=== PATIENT | male | born 1955 ===

== ENCOUNTER 2018-04-02 16:30 | Outpatient (REF) | payer MEDICARE, SELFPAY ==
[2018-04-02 22:09] LABS: Anion Gap 6.2 mmol/L (3-11); BUN 10 mg/dL (7-18); CO2 29.8 mmol/L (21.0-32.0); Calcium 8.8 mg/dL (8.5-10.1); Chloride 100 mmol/L (98-107); Glucose 98 mg/dL (70-100); Potassium 4.3 mmol/L (3.5-5.1); Sodium 136 mmol/L (136-145)
[2018-04-02 23:28] LABS: Cholesterol 166 mg/dL (50-200); HDL Cholesterol 84 mg/dL (40-60); LDL CHOLESTEROL 65 mg/dL (<100); Triglyceride 80 mg/dL (30-150)
== END 2018-04-02 16:50 ==
LOC: NCHCN 16:30
PROVIDERS: PCP Internal Medicine; Visit Provider Internal Medicine
DX: E78.5 Hyperlipidemia, unspecified (principal); Z79.899 Other long term (current) drug therapy
CPT/HCPCS: 80048; 80061; 83721

== ENCOUNTER 2019-11-12 15:03 | Outpatient (REF) | payer MEDICARE, SELFPAY ==
[2019-11-12 21:58] LABS: HCT 41.3 % (40.0-50.0); HGB 14.2 g/dL (13.5-17.5); Mean Corp. HGB Concentration 34.4 g/dL (32.0-36.0); Mean Corpuscular Hemoglobin 33.3 pg (27.0-33.0); Mean Corpuscular Volume 96.9 fL (80-95); Mean Platelet Volume 9.9 fL (8.0-11.0); Platelet Count 278 x1000/uL (130-400); RBC 4.26 m/cumm (4.50-6.00); RBC Distribution Width 12.4 % (11.8-14.1); White Blood Cell Count 5.44 k/cumm (4.4-10.8)
[2019-11-12 22:13] LABS: Anion Gap 7.8 mmol/L (3-11); BUN 10 mg/dL (7-18); CO2 27.2 mmol/L (21.0-32.0); CREATININE 0.68 mg/dL (0.70-1.30); Calcium 9.1 mg/dL (8.5-10.1); Chloride 98 mmol/L (98-107); Glucose 101 mg/dL (74-106); Potassium 4.1 mmol/L (3.5-5.1); Sodium 133 mmol/L (136-145)
== END 2019-11-12 15:23 ==
LOC: NCHCN 15:03
PROVIDERS: PCP Internal Medicine; Visit Provider Internal Medicine
DX: Z79.899 Other long term (current) drug therapy (principal); Z51.81 Encounter for therapeutic drug level monitoring
CPT/HCPCS: 80048; 85027

== ENCOUNTER 2020-12-18 19:32 | Outpatient (REF) | payer MEDICARE, SELFPAY ==
[2020-12-18 20:22] LABS: COMMENT (LAB VIEW ONLY) 139.18 mg/dL; Microalb ug/mg Crea 17.2 ug/mg Cr
== END 2020-12-18 19:33 | disposition home or self-care (01) ==
LOC: NCHCN 19:32
PROVIDERS: PCP Internal Medicine; Visit Provider Internal Medicine
DX: R20.0 Anesthesia of skin (principal); R60.0 Localized edema
CPT/HCPCS: 82043; 82570

== ENCOUNTER 2023-10-30 15:50 | Outpatient (REF) | payer MEDICARE, SELFPAY ==
[2023-10-30 22:03] LABS: HCT 40.4 % (40.0-50.0); HGB 14.2 g/dL (13.5-17.5); MCH 34.1 pg (27.0-33.0); MCHC 35.1 % (32.0-36.0); MCV 97 fL (80-95); MPV 10.7 fL (8.0-11.0); Platelet Count 260 10^3/uL (130-400); RBC 4.17 10^6/uL (4.36-5.78); RDW 11.8 % (11.8-14.1); RDW-SD 42.4 fL; WBC 5.16 10^3/uL (4.4-10.8)
[2023-10-30 22:21] LABS: ALT 24 U/L (16-63); AST 21 U/L (15-37); Albumin 3.9 g/dL (3.4-5.0); Alkaline Phosphatase 66 U/L (46-116); Anion Gap 4.5 mmol/L (3-11); BUN 9 mg/dL (7-18); Bilirubin, Total 0.6 mg/dL (0.2-1.0); CO2 30.5 mmol/L (21.0-32.0); CREATININE 0.7 mg/dL (0.70-1.30); Calcium 8.9 mg/dL (8.5-10.1); Chloride 99 mmol/L (98-107); Estimated GFR 101.62 (mL/min/1.73m2); Glucose 100 mg/dL (74-106); Potassium 4.3 mmol/L (3.5-5.1); Sodium 134 mmol/L (136-145); Total Protein 7.1 g/dL (6.4-8.2)
== END 2023-10-30 15:51 | disposition home or self-care (01) ==
LOC: NCHCN 15:50
PROVIDERS: PCP Internal Medicine; Visit Provider Internal Medicine
DX: Z79.899 Other long term (current) drug therapy (principal); Z51.81 Encounter for therapeutic drug level monitoring
CPT/HCPCS: 80053; 85027

== ENCOUNTER 2023-12-01 16:44 | Outpatient (REF) | payer MEDICARE, SELFPAY ==
--- OUTSIDE RECORDS SUMMARY | 2023-12-01 16:59 | XMS_ITS | Encounter Summary ---
Author Organization [facility] [place] [address] Care Team Providers Care Jig Operator Name Role Phone Shazia Philip MD Primary Care Provider [phone] Encounter Details Date Type Department Care Team (Late st Contact Info) Description 10/23/2019 2:45 PM EDT Ancillary Procedure Pain Management Counts Include [address] [facility] [id number] Don Marquez MD [facility] [place] [address] Pain Social History Tobacco Use Types Packs/Day Years Used Date Smoking Tobacco: Never Smokeless Tobacco: Never Sex and Gender Information Value Date Recorded Sex Assigned at Not on file Gender Identity Not on file Sexual Orientation Not on file documented as of this encounter Plan of Treatment Not on file documented as of this encounter Procedures Procedure Name Priority Date/Time Associated Diagnosis Comments FILM LIBRARY STORAGE ONLY PAIN CLINIC C ARM Routine 10/25/2019 4:51 PM EDT Pain documented in this encounter Results * Film Library- Storage Only pain Clinic C-Arm (10/25/2019 4:51 PM EDT) Narrative [facility] - 10/25/2019 4:51 PM EDT See PACS for result report. Don Marquez MD IMG FILM LIBRARY ORD ERABLES [place], [place] documented in this encounter Visit Diagnoses Diagnosis Pain Generalized pain documented in this encounter Care Teams Jig Operator Relationship Specialty Start Date End Date Shazia Philip MD [address] [place] [address] PCP - General General Internal Medicine 01/24/19 documented as of this encounter
--- OUTSIDE RECORDS SUMMARY | 2023-12-01 16:59 | XMS_ITS | Clinical Summary ---
Author Organization [facility]ly [facility] Address [facility] [place] [address] Care Team Providers Care Veterinary Medicine Scientist Name Role Phone Shazia Philip MD Primary Care Provider [phone] Allergies No known active allergies Medications Medication Sig Dispensed Refills Start Date End Date Status methadone (DOLOPHINE) 10 mg Tablet Take 10 mg by mouth 2 times daily. 0 12/29/2018 Active tadalafil (CIALIS) 5 mg Tablet as needed. 3 12/30/2018 Active ibuprofen (Advil;Motrin) 400 mg Tablet Take 400 mg by mouth every 8 hours as needed for Pain. Active Active Problems Problem Noted Date Diagnosed Date Chronic left shoulder pain 01/22/2020 Spondylosis without myelopat hy or radiculopathy, lumbar region 02/11/2019 Lumbar facet arthropathy 01/24/2019 Chronic bilateral low back pain without sciatica 01/24/2019 Spasticity 01/24/2019 History of spinal cord injury 01/24/2019 Social History Tobacco Use Types Packs/Day Years Used Date Smoking Tobacco: Never Smokeless Tobacco: Never Sex and Gender Information Value Date Recorded Sex Assigned at Not on file Gender Identity Not on file Sexual Orientation Not on file Last Filed Vital Signs Vital Sign Reading Time Taken Comments Blood Pressure 131/92 01/08/2020 11:06 AM EDT Pulse 62 10/23/2019 2:00 PM EDT Temperature 36.4 ??C (97.6 ??F) 10/23/2019 2:00 PM ED T Respiratory Rate 16 01/08/2020 11:20 AM EDT Oxygen Saturation 97% 01/08/2020 11:06 AM EDT Inhaled Oxygen Concentration - - Weight 72.6 kg (160 lb) 01/21/2020 3:44 PM EDT Height 170.2 cm (5' 7) 01/08/2020 10:30 AM EDT Body Mass Index 25.06 01/08/2020 10:30 AM EDT Plan of Treatment Health Maintenance Due Date Last Done Comments CT Colonography 1955 Colonoscopy 1955 Colorectal Cancer Screening 1955 FIT DNA 1955 FIT 1955 Sigmoidoscopy (10 year) with FIT yearly 1955 Sigmoidoscopy 1955 Hepatitis C Screening 10/09/1975 Lipid Screening 10/09/1975 Tdap adult 1976 Tetanus vaccine 1976 Zoster vaccine (1 of 2) 10/09/2007 Advance Directive 2012 Pneumoccocal Vaccine: 65+ (1 of 1 - PCV) 2022 Covid-19 Vaccine (1 - season) 2023 Influenza (Flu) vaccine (1 o f 1 - Influenza standard series) 01/14/2024 Care Teams Veterinary Medicine Scientist Relationship Specialty Start Date End Date Shazia Philip MD [address] [place], [place] [id number] PCP - General General Internal Medicine 01/24/19
--- OUTSIDE RECORDS SUMMARY | 2023-12-01 16:59 | XMS_ITS | Encounter Summary ---
Author Organization [facility] Address [facility] [place] [address] Care Team Providers Care Interpreter And Translator Name Role Phone Shazia Philip MD Primary Care Provider [phone] Encounter Details Date Type Department Care Team (Latest Contact Info) Description 10/23/2019 2:50 PM EDT - 10/23/2019 3:49 PM EDT Hospital Encounter [place] [phone] Don Marquez MD [facility] [place] [address] Spondylosis without myelopathy or radiculopathy, lumbar region; Lumbar facet arthropathy; Lumbar spondylosis; Chronic bilateral low back pain without sciatica Discharge Disposition: Home Social History Tobacco Use Types Packs/Day Years Used Date Smoking Tobacco: Never Smokeless Tobacco: Never Sex and Gender Information Value Date Recorded Sex Assigned at Not on file Gender Identity Not on file Sexual Orientation Not on file documented as of this encounter Last Filed Vital Signs Vital Sign Reading Time Taken Comments Blood Pressure 134/89 10/23/2019 3:10 PM EDT Pulse - - Temperature - - Respiratory Rate - - Oxygen Saturation 99% 10/23/2019 3:10 PM EDT Inhaled Oxygen Concentration - - Weight - - Height - - Body Mass Index - - documented in this encounter Discharge Instructions * Discharge Instructions* Belia Ramon RN - 10/23/2019 3:11 PM EDT Pain Management Center Discharge Instructions: You were seen today by Surgeon(s): Don Marquez MD Alexander, Christopher E, MD The following was performed: Procedure(s) (LRB): INJECTION, FACET JOINT, W\FLUORO, LUMBAR, SINGLE (WRVU 1.52) (Bilateral) INJECTION, FACET JOINT, W\FLUORO, LUMBAR, 2ND LEVEL (WRVU 1) (Bilateral) INJECTION, FACET JOINT, W\FLUORO, LUMBAR, 3RD LEVEL (WRVU 1) (Bilateral) It is normal that the injection site will be sore for up to 48 hours. [x] You may also experience mild stiffness in the joint near the injection site. You may resume your normal activities: tomorrow. You may shower today. DO NOT tub bathe, use whirlpools, hot tubs or pool therapy for 2 days. RemoveBand-Aid(s) later today/tomorrow. Do not drive until tomorrow. Use caution walking/climbing stairs as you may be unsteady on your feet. You may use your usual medications, including pain medications, as directed, unless otherwise instructed. You may use an ice pack as needed for the first 24 hours, on for 20 minutes then off for 20 minutes. Do not apply heat today. . Attempt to empty your bladder 4-6 hours after your procedure. You received the following medications: Medications Given During Procedure Date/Time Order Dose Route Action 10/23/2019 1502 BUpivacaine (PF) (MARCAINE) 0.25 % (2.5 mg/mL) injection 2 mL Subcutaneous Given 10/23/2019 1503 iohexoL (OMNIPAQUE) 240 mg/mL solution 1 mL Other Given 10/23/2019 1503 methylPREDNISolone acetate (DEPO-Medrol) injection 100 mg Given During regular business hours, please phone the Pain Management Center at with any questions or if the following or other troubling symptoms develop: 1) Prolonged dizziness or weakness (more than 1 day). 2) Localized swelling, redness or drainage at the injection site(s). 3) Temperature of 101 degrees that lasts for more than 4 hours. After 5 PM or on weekends, call and ask for Pain Clinic provider on-call. If you are unable to reach the Pain Management Center and have a complication, please call your Primary Care Provider or proceed to your local emergency department. Belia Ramon RN documented in this encounter Medications at Time of Discharge Medication Sig Dispensed Refills Start Date End Date ibuprofen (Advil;Motrin) 400 mg Tablet Take 400 mg by mouth every 8 hours as needed for Pain. methadone (DOLOPHINE) 10 mg Tablet Take 10 mg by mouth 2 times daily. 0 12/29/2018 tadalafil (CIALIS) 5 mg Tablet as needed. 3 12/30/2018 documented as of this encounter H&P Notes * Mil Bravo MD - 10/23/2019 2:55 PM EDT Patient Name: Michael Esqueda Patient Age: 64 y.o. Birthdate: 1955 Admit date: 10/23/2019 Attending Physician: Don Marquez MD PREPROCEDURE HISTORY AND PHYSICAL Date of Visit: October 23, 2019 Chief Complaint: Low back pain HPI: Subjective Michael Esqueda is a 64 y.o. male who presents today for bilateral L3-4 and L4-5 intraarticular facet injections. The history is obtained from the patient, and I have reviewed medical records provided by the referring physician and located in the electronic medical record to fill in gaps in the patient's recollection of events, treatments and outcomes. LOCATION: across the lower back. PAIN LEVEL AT REST 10 PAST MEDICAL HISTORY: No past medical history on file. PAST SURGICAL HISTORY: No past surgical history on file. ALLERGIES: Patient has no known allergies. MEDICATIONS: No current facility-administered medications on file prior to encounter. Current Outpatient Medications on File Prior to Encounter Medication Sig Dispense Refill ??? ibuprofen (Advil;Motrin) 400 mg Tablet Take 400 mg by mouth every 8 hours as needed for Pain. ??? methadone (DOLOPHINE) 10 mg Tablet Take 10 mg by mouth 2 times daily. 0 ??? tadalafil (CIALIS) 5 mg Tablet as needed. 3 FAMILY HISTORY: No family history on file. SOCIAL HISTORY: Social History Socioeconomic History ??? Marital status: Single Spouse name: Not on file ??? Number of children: Not on file ??? Years of education: Not on file ??? Highest education level: Not on file Occupational History ??? Not on file Social Needs ??? Financial resource strain: Not on file ??? Food insecurity Worry: Not on file Inability: Not on file ??? Transportation needs Medical: Not on file Non-medical: Not on file Tobacco Use ??? Smoking status: Never Smoker ??? Smokeless tobacco: Never Used Substance and Sexual Activity ??? Alcohol use: Not on file ??? Drug use: Not on file ??? Sexual activity: Not on file Lifestyle ??? Physical activity Days per week: Not on file Minutes per session: Not on file ??? Stress: Not on file Relationships ??? Social connections Talks on phone: Not on file Gets together: Not on file Attends zoroastrianism service: Not on file Active member of club or organization: Not on file Attends meetings of clubs or organizations: Not on file Relationship status: Not on file ??? Intimate partner violence Fear of current or ex partner: Not on file Emotionally abused: Not on file Physically abused: Not on file Forced sexual activity: Not on file Other Topics Concern ??? Not on file Social History Narrative ??? Not on file ROS: Constitutional: Negative for chills and fever. Musculoskeletal: Positive for back pain. All 12 systems otherwise negative. PHYSICAL EXAM: There were no vitals taken for this visit. Physical Exam Constitutional: Oriented to person, place, and time. Appears well-developed and well-nourished. No distress. HENT: Head: Normocephalic and atraumatic. Eyes: EOM are normal. Pulmonary/Chest: Effort normal. No respiratory distress. Neurological: Alert and oriented to person, place, and time. Skin: Skin is warm and dry. Psychiatric: Normal mood and affect. RADIOLOGIC DATA: X-ray reviewed LABS/DX RESULTS: Last wbc, hgb, hct plt No results for input(s): WBC, HGB, HCT in the last 72 hours. Invalid input(s): PLT ASSESSMENT: Assessment 1. Spondylosis without myelopathy or radiculopathy, lumbar region 2. Lumbar facet arthropathy 3. Lumbar spondylosis 4. Chronic bilateral low back pain without sciatica PLAN: 1. Spondylosis without myelopathy or radiculopathy, lumbar region 2. Lumbar facet arthropathy 3. Lumbar spondylosis 4. Chronic bilateral low back pain without sciatica Will proceed with bilateral L3-4 and L4-5 intraarticular facet joint injections as planned documented in this encounter Miscellaneous Notes * Op Note - iMl Bravo MD - 10/23/2019 3:36 PM EDT Pain Management Operative Note Patient Name: Michael Esqueda : [id number] MR#: [id number] Case Date: 10/23/2019 Surgeon: Surgeon(s) and Role: * Don Marquez MD - Primary * Mil Bravo MD - Fellow Present on Admission: ??? Spondylosis without myelopathy or radiculopathy, lumbar region INTRA-ARTICULAR FACET JOINT INJECTION Date of Service: 10/14/2019 Patient: Michale Esqueda Provider: Mil Bravo MD Michael Esqueda has been referred to the Pain Management Center for intra- articular lumbar facet joint injection. Mr. Esqueda was interviewed and the medical record reviewed. There were no medical, pharmacologic, radiographic or other structural contraindications to attempting fluoroscopically guided intra-articular lumbar facet joint injection. Risks and expected side effects as well as potential benefit of the procedure were reviewed with Michael Esqueda, and he voiced concerns addressed. The printed consent form was signed and witnessed. Standard time-out procedure was performed. Mr. Esqueda was placed in the prone position on the fluoroscopy table and automated blood pressure cuff and pulse oximeter applied. The skin entry point for approaching bilaterally facet joints at L3-L4, L4-L5, and L5-S1 was identified under the most advantageous fluoroscopic view and marked. Following thorough Chlorhexadine preparation of the skin and draping and 1% lidocaine infiltration of theskin entry point and subcutaneous tissues, a 25 gauge 3.5 inch spinal needle was placed under fluoroscopic guidance into bilaterally facet joint. Intra-articular placement was confirmed by a clear arthrogram resulting from the injection of 0.25ml Omnipaque 240. 0.5 cc's of a 6 cc mixture of 0.25% bupivacaine and 100mg Depomedrol were injected intra-articularily at each level with an initial reproduction of a significant component of the usual pain. Mr. Queens vital signs were stable throughout the procedure and were as recorded in the docflowsheet by the nursing staff. If given, dosages of intravenous drugs for anxiolysis and analgesia were documented in MAR. Follow up plans and appointments were discussed with the Mr. Esqueda. Post procedure instruction was given as documented in nursing documentation and having met discharge criteria, he was discharged from the Pain Management Center. COMMENTS: No complications. Procedure well tolerated CC: Shazia Philip MD @PCPADDR@ Procedure(s) (LRB): INJECTION, FACET JOINT, W\FLUORO, LUMBAR, SINGLE (WRVU 1.52) (Bilateral) INJECTION, FACET JOINT, W\FLUORO, LUMBAR, 2ND LEVEL (WRVU 1) (Bilateral) INJECTION, FACET JOINT, W\FLUORO, LUMBAR, 3RD LEVEL (WRVU 1) (Bilateral) Associated attestation - Don Marquez MD - 10/24/2019 8:17 AM EDT Attestation: Case Date: 10/23/2019 Patient with spinal cord injury who has predominantly axial low back pain, thought to be combination of facetogenic and myofascial due to posture and wheelchair bound. Patient received significant pain relief from prior diagnostic lumbar MBB and not sustained pain relief from RFA. Decision was madeto target bilateral L3/4, L4/5 and L5/S1 facets with intra-articular joint injections. Don Marquez MD 10/24/2019 documented in this encounter Plan of Treatment Scheduled Orders Name Type Priority Associated Diagnoses Orde r Schedule INJECTION, FACET JOINT,W\FLUORO, LUMBAR, 2ND LEVEL Procedures Routine Lumbar facet arthropathy Lumbar spondylosis Chronic bilateral low back pain without sciatica One Time for 1 Occurrences starting 10/23/2019 until 10/23/2019 INJECTION, FACET JOINT,W\FLUORO, LUMBAR, 3RD LEVEL Procedures Routine Lumbar facet arthropathy Lumbar spondylosis Chronic bilateral low back pain without sciatica One Time for 1 Occurrences starting 10/23/2019 until 10/23/2019 documented as of this encounter Visit Diagnoses Diagnosis Spondylosis without myelopathy or radiculopathy, lumbar region Lumbar facet arthropathy Lumbosacral spondylosis without myelopathy Lumbar spondylosis Lumbosacral spondylosis without myelopathy Chronic bilateral low back pain without sciatica Spondylosis without myelopathy or radiculopathy, lumbar region documented in this encounter Active and Recently Administered Medications Times are shown in EDT. PRN Medication Order 10/21/2019 10/22/2019 10/23/2019 BUpivacaine (PF) (MARCAINE) 0.25 % (2.5 mg/mL) injection (CANCELED) ONCE PRN, Starting on Mon10/23/19 at 1502, Until Mon10/23/19 at 1749, Intra-Operative (Intra-Procedure), Routine 1502 (Given - Provid er: Mil Bravo MD) iohexoL (OMNIPAQUE) 240 mg/mL solution (CANCELED) ONCE PRN, Starting on Mon10/23/19 at 1503, Until Mon10/23/19 at 1749, Intra-Operative (Intra-Procedure), Routine 1503 (Given - Provid er: Mil Bravo MD) methylPREDNISolone acetate (DEPO-Medrol) injection (CANCELED) ONCE PRN, Starting on Mon10/23/19 at 1503, Until Mon10/23/19 at 1749, Intra-Operative (Intra-Procedure), Routine 1503 (Given - Provid er: Mil Bravo MD) documented in this encounter Care Teams Interpreter And Translator Relationship Specialty Start Date End Date Shazia Philip MD [address] [place] [address] PCP - General General Internal Medicine 01/24/19 documented as of this encounter
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
--- OUTSIDE RECORDS SUMMARY | 2023-12-01 16:59 | XMS_ITS | Encounter Summary ---
Author Organization [facility] [place] [address] Care Team Providers Care Board Mixer Tender Name Role Phone Shazia Philip MD Primary Care Provider [phone] Reason for Visit * Reason Comments Pain Management Back Pain Encounter Details Date Type Department Care Team (Latest Contact Info) Description 11/20/2019 4:00 PM EDT TH Visit (TeleHealth) [facility] Sp[facility] at [facility] [place] [place] [phone] Tami Jones CREATIVE COORDINATOR [facility] [place] [address] Chronic bilateral low back pain without sciatica; Lumbar facet arthropathy Social History Tobacco Use Types Packs/Day Years Used Date Smoking Tobacco: Never Smokeless Tobacco: Never Sex and Gender Information Value Date Recorded Sex Assigned at Not on file Gender Identity Not on file Sexual Orientation Not on file documented as of this encounter Last Filed Vital Signs Vital Sign Reading Time Taken Comments Blood Pressure - - Pulse - - Temperature - - Respiratory Rate - - Oxygen Saturation - - Inhaled Oxygen Concentration - - Weight 72.6 kg (160 lb) 11/20/2019 1:17 PM EDT Height 170.2 cm (5' 7) 11/20/2019 1:17 PM EDT Body Mass Index 25.06 11/20/2019 1:17 PM EDT documented in this encounter Progress Notes * Tami Jones APRN - 11/20/2019 4:00 PM EDT Telephone Visit Subjective: 64 yo male patient with chronic low back pain, scheduled for telehealth/telephone visitto follow-up after he had bilateral L3/4, L4/5 and L5/S1 facets with intra-articular joint injections. He states that 4-5 days after procedure he had good improvement in his back pain. He had been able to stand up easier, has been able to use his stationary bike, leg press and has also been doing exercises that he learned from Kira Hernandez PT. He feels that over all his back pain is doing well after lumbar facet joint injections. Average pain in the back in the past week has been 5/10. He plans to continue with his primary care provider for medication management. Discussed at his last visit that he would benefit from Wheel chair clinic evaluation and treatment but it is a long distance for him to travel here for this. Decision Making/Plan: Encourage patient to continue home exercise program. Repeat bilateral L3/4, L4/5 and L5/S1 facets with intra-articular joint injections in 2-6 months ifpain returns to previous level. Patient instructed to call clinic if benefit from facet joints is waning and can repeat. Request PCP refer to wheelchair chair at [facility]. Patient verbally consents to this telephone visit and understands that this visit may be billed, similar to a clinic office visit. I provided care to the patient today via telephone call. The total time associated with this visit was 10 minutes. Tami Jones APRN documented in this encounter Plan of Treatment Not on file documented as of this encounter Visit Diagnoses Diagnosis Chronic bilateral low back pain without sciatica Lumbar facet arthropathy Lumbosacral spondylosis without myelopathy documented in this encounter Care Teams Board Mixer Tender Relationship Specialty Start Date End Date Shazia Philip MD [address] [place] [address] PCP - General General Internal Medicine 01/24/19 documented as of this encounter
--- OUTSIDE RECORDS SUMMARY | 2023-12-01 16:59 | XMS_ITS | Encounter Summary ---
Author Organization [facility] [place] [address] Care Team Providers Care Kitchen Designer Name Role Phone Shazia Philip MD Primary Care Provider [phone] Encounter Details Date Type Department Care Team (Late st Contact Info) Description 01/08/2020 11:00 AM EDT - 01/08/2020 12:00 PM EDT [place] [phone] Don Marquez MD [facility] [place] [address] INJECTION, FACET JOINT, W\FLUORO, LUMBAR, SINGLE (WRVU 1.52) Social History Tobacco Use Types Packs/Day Years Used Date Smoking Tobacco: Never Smokeless Tobacco: Never Sex and Gender Information Value Date Recorded Sex Assigned at Not on file Gender Identity Not on file Sexual Orientation Not on file documented as of this encounter Last Filed Vital Signs Vital Sign Reading Time Taken Comments Blood Pressure 131/92 01/08/2020 11:06 AM EDT Pulse - - Temperature - - Respiratory Rate 16 01/08/2020 11:20 AM EDT Oxygen Saturation 97% 01/08/2020 11:06 AM EDT Inhaled Oxygen Concentration - - Weight 72.6 kg (160 lb) 01/08/2020 10:30 AM EDT Height 170.2 cm (5' 7) 01/08/2020 10:30 AM EDT Body Mass Index 25.06 01/08/2020 10:30 AM EDT documented in this encounter Discharge Instructions * Discharge Instructions* Gail Spears RN - 01/08/2020 11:28 AM EDT Pain Management Center Discharge Instructions: You were seen today by Surgeon(s): Don Marquez MD Inozemtsev, Konstantin, MD The following was performed: Procedure(s) (LRB): [...] 20 minutes. Do not apply heat today. Attempt to empty your bladder 4-6 hours after your procedure. You received the following medications: Medications Given During Procedure Date/Time Order Dose Route Action 01/08/2020 1124 BUpivacaine (PF) (MARCAINE) 0.25 % (2.5 mg/mL) injection 8 mL Other Given 01/08/2020 1123 iohexoL (OMNIPAQUE) 240 mg/mL solution 3 mL Other Given 01/08/2020 1123 methylPREDNISolone acetate (DEPO-Medrol) injection 40 mg Intramuscular Given 01/08/2020 1123 methylPREDNISolone acetate (DEPO-Medrol) injection 80 mg Intramuscular Given During regular business hours, please phone [...] or proceed to your local emergency department. GAIL SPEARS RN Special instructions documented in this encounter Medications at Time [...] as of this encounter H&P Notes * Guille Nayak MD - 01/08/2020 11:00 AM EDT Patient Name: Michael Esqueda Patient Age: 64 y.o. Birthdate: 1955 Admit date: (Not on file) Attending Physician: Don Marquez MD PREPROCEDURE HISTORY AND PHYSICAL Date of Visit: January 07, 2020 Chief Complaint: Axial back pain HPI: Subjective Michael Esqueda is a 64 y.o. male who presents today for bilateral L4,5,S1 intra-articular facet joint injections. Patient received significant pain relief from prior diagnostic lumbar MBB and not sustained pain relief from RFA. Subsequently had bilateral facet intra-articular joint injections on10/23/19 with good relief lasting two months. Returning with recurrence of pain for repeat procedure. The history is obtained from the patient, and I have reviewed medical records provided by the referring physician and located in the electronic medical record to fill in gaps in the patient's recollection of events, treatments and outcomes. LOCATION: Axial low back PAIN LEVEL AT REST 10/22 PAST MEDICAL HISTORY: No past medical history on file. PAST SURGICAL HISTORY: No past surgical history on file. FAMILY HISTORY: No family history on file. [...] file Gets together: Not on file Attends temple service: Not on file Active member of [...] Social History Narrative ??? Not on file ALLERGIES: Patient has no known allergies. MEDICATIONS: @MEDNOWREFRESH@ ROS: Pt denies recent fever, chills, infection, wounds, hospitalizations, ED visits, use of antibiotics.Otherwise, as described above. PHYSICAL EXAM: There were no vitals taken for this visit. General: patient well developed and is non-distressed Head: normocephalic and atraumatic CV: normal rate, normal rhythm Pulmonary: effort and breath sounds normal, no wheezing Skin: non-diaphoretic and no rashes noted MSK: positive Stockton's test bilaterally Physical Exam RADIOLOGIC DATA: Reviewed personally by me LABS/DX RESULTS: Labs reviewed and no new labs pertinent to today's procedure. ASSESSMENT: No diagnosis found. PLAN: Proceed with L4, L5, S1 intra-articular facet joint injection bilaterally Guille Nayak MD Pain Management Fellow [address] [address] / [email or web address].org documented in this encounter Miscellaneous Notes * Op Note - Don Marquez MD - 01/08/2020 10:51 AM EDT Pain Management Operative Note Patient Name: Michael Esqueda : [id number] MR#: [id number] Case Date: 01/08/2020 Surgeon: Surgeon(s) and Role: * Don Marquez MD - Primary * Guille Nayak MD - Pain Fellow * Geovany Veronica MD - Personnel Security Assistant Present on Admission: ??? Lumbar facet arthropathy Postoperative diagnosis: same as above Procedure(s) (LRB): INJECTION, FACET JOINT, W\FLUORO, LUMBAR, SINGLE (WRVU 1.52) (Bilateral) INJECTION, FACET JOINT, W\FLUORO, LUMBAR, 2ND LEVEL (WRVU 1) (Bilateral) INJECTION, FACET JOINT, W\FLUORO, LUMBAR, 3RD LEVEL (WRVU 1) (Bilateral) INTRA-ARTICULAR FACET JOINT INJECTION Date of Service: 01/01/2020 Patient: Michael Esqueda Provider: Don Marquez MD Michael Esqueda has been referred to the Pain Management Center for intra- articular lumbar facet joint injection. COMMENTS: patient received excellent pain relief with near 100% pain resolution after last intra-articular facet injection Mr. Esqueda was interviewed and the medical [...] point for approaching bilaterally facet joints at L3/4, L4/5 and L5/S1 was identified under the most advantageous fluoroscopic view and marked. Following thorough Chlorhexadine preparation of the skin and draping and 1% lidocaine infiltration of the skin entry point and subcutaneous tissues, a 25 gauge spinal needle was placed under fluoroscopic guidance into bilaterally facet joint. Intra-articular placement was confirmed by a clear arthrogram resulting from the injection of 0.25ml Omnipaque 240. 0.5ml 0.5% Bupivocaine and 20mg Depomedrol were injected intra-articularily with an initial reproduction of a significant component of the usual pain. Total of 120mg of Depomedrol used total for 6 facets (bilateral L3/4, L4/5 and L5/S1) Mr. Esqueda's vital signs were stable throughout the procedure [...] discharged from the Pain Management Center. COMMENTS: patient tolerated procedure well. Guille Nayak MD Pain Fellow Geovany Oro MD Personnel Security Assistant I was the supervising attending for this procedure and I was present during the entire time. Don Marquez MD Pain Management CC: Shazia Philip MD [address] [address] documented in this encounter Plan of Treatment Not on file documented as of this encounter Visit Diagnoses Diagnosis Lumbar facet arthropathy- Primary Lumbosacral spondylosis without myelopathy Lumbar facet arthropathy Lumbosacral spondylosis without myelopathy Lumbar spondylosis Lumbosacral spondylosis without myelopathy Chronic bilateral low back pain without sciatica documented in this encounter Administered Medications Inactive Administered Medications - up to 3 most recent administrations Medication Order MAR Action Action Date Dose Rate Site BUpivacaine (PF) (MARCAINE) 0.25 % (2.5 mg/mL) injection ONCE PRN, Starting on Mon01/08/20 at 1124, Until Mon01/08/20 at 1342, Intra-Operative (Intra-Procedure), Routine Given 01/08/2020 11:24 AM EDT 8 mLs iohexoL (OMNIPAQUE) 240 mg/mL solution ONCE PRN, Starting on Mon01/08/20 at 1123, Until Mon01/08/20 at 1342, Intra-Operative (Intra-Procedure), Routine Given 01/08/2020 11:23 AM EDT 3 mLs methylPREDNISolone acetate (DEPO-Medrol) injection ONCE PRN, Starting on Mon01/08/20 at 1123, Until Mon01/08/20 at 1342, Intra-Operative (Intra-Procedure), Routine Given 01/08/2020 11:23 AM EDT 40 mg methylPREDNISolone acetate (DEPO-Medrol) injection ONCE PRN, Starting on Mon01/08/20 at 1123, Until Mon01/08/20 at 1342, Intra-Operative (Intra-Procedure), Routine Given 01/08/2020 11:23 AM EDT 80 mg documented in this encounter Active and Recently Administered Medications Times are shown in EDT. PRN Medication Order 01/06/2020 01/07/2020 01/08/2020 BUpivacaine (PF) (MARCAINE) 0.25 % (2.5 mg/mL) injection (CANCELED) ONCE PRN, Starting on Mon01/08/20 at 1124, Until Mon01/08/20 at 1342, Intra-Operative (Intra-Procedure), Routine 112 (Given - Provid er: Guille Nayak MD) iohexoL (OMNIPAQUE) 240 mg/mL solution (CANCELED) ONCE PRN, Starting on Mon01/08/20 at 1123, Until Mon01/08/20 at 1342, Intra-Operative (Intra-Procedure), Routine 1122 (Given - Provid er: Guille Nayak MD) methylPREDNISolone acetate (DEPO-Medrol) injection (CANCELED) ONCE PRN, Starting on Mon01/08/20 at 1123, Until Mon01/08/20 at 1342, Intra-Operative (Intra-Procedure), Routine 1122 (Given - Provid er: Guille Nayak MD) methylPREDNISolone acetate (DEPO-Medrol) injection (CANCELED) ONCE PRN, Starting on Mon01/08/20 at 1123, Until Mon01/08/20 at 1342, Intra-Operative (Intra-Procedure), Routine 112 (Given - Provid er: Guille Nayak MD) documented in this encounter Care Teams Kitchen Designer Relationship Specialty Start Date End Date Shazia Philip MD [address] [address] PCP - General General Internal Medicine 01/24/19 documented as of this encounter
--- OUTSIDE RECORDS SUMMARY | 2023-12-01 16:59 | XMS_ITS | Encounter Summary ---
Author Organization [facility] [place] [address] Care Team Providers Care Tunnel Heading Inspector Name Role Phone Shazia Philip MD Primary Care Provider [phone] Encounter Details Date Type Department Care Team (Latest Contact Info) Description 01/08/2020 10:25 AM EDT - 01/08/2020 11:42 AM EDT Hospital [place] [phone] Don Marquez MD [facility] [place] [address] Discharge Disposition: Home Social History Tobacco Use [...] file Gets together: Not on file Attends jehovah's witness service: Not on file Active member of [...] bilaterally Guille Nayak MD Pain Management Fellow [address] [phone] / [facility] documented in this encounter Miscellaneous Notes * Op Note - Don Marquez MD - 01/08/2020 10:51 AM EDT Pain Management Operative Note Patient Name: Michael Esqueda : [id number] MR#: [id number] Case Date: 01/08/2020 Surgeon: Surgeon(s) and Role: * Don Marquez MD - Primary * Guille Nayak MD - Pain Fellow * Geovany Veronica MD - Sampler Ovens Present on Admission: ??? Lumbar facet arthropathy [...] for anxiolysis and analgesia were documented in JUL. Follow up plans and appointments were discussed with the Mr. Esqueda. Post procedure instruction was given as documented in nursing documentation and having met discharge criteria, he was discharged from the Pain Management Center. COMMENTS: patient tolerated procedure well. Guille Nayak MD Pain Fellow Geovany Oro MD Sampler Ovens I was the supervising attending for this procedure and I was present during the entire time. Don Marquez MD Pain Management CC: Shazia Philip MD [address] [address] documented in this encounter Plan of Treatment Not on file documented as of this encounter Visit Diagnoses Diagnosis Lumbar facet arthropathy- Primary Lumbosacral spondylosis without myelopathy documented in this encounter Active and Recently Administered Medications Times are shown in EDT. PRN Medication Order 01/06/2020 01/07/2020 01/08/2020 BUpivacaine (PF) (MARCAINE) 0.25 % (2.5 mg/mL) injection (CANCELED) ONCE PRN, Starting on Mon01/08/20 at 1124, Until Mon01/08/20 at 1342, Intra-Operative (Intra-Procedure), Routine 1124 (Given - Provid er: Guille Nayak MD) iohexoL (OMNIPAQUE) 240 mg/mL solution (CANCELED) ONCE PRN, Starting on Mon01/08/20 at 1123, Until Mon01/08/20 at 1342, Intra-Operative (Intra-Procedure), Routine 1123 (Given - Provid er: Guille Nayak MD) methylPREDNISolone acetate (DEPO-Medrol) injection (CANCELED) ONCE PRN, Starting on Mon01/08/20 at 1123, Until Mon01/08/20 at 1342, Intra-Operative (Intra-Procedure), Routine 1123 (Given - Provid er: Guille Nayak MD) methylPREDNISolone acetate (DEPO-Medrol) injection (CANCELED) ONCE PRN, Starting on Mon01/08/20 at 1123, Until Mon01/08/20 at 1342, Intra-Operative (Intra-Procedure), Routine 1123 (Given - Provid er: Guille Nyaak MD) documented in this encounter Care Teams Tunnel Heading Inspector Relationship Specialty Start Date End Date Shazia Philip MD [address] [place] [address] PCP - General General Internal Medicine 01/24/19 documented as of this encounter
--- OUTSIDE RECORDS SUMMARY | 2023-12-01 16:59 | XMS_ITS | Encounter Summary ---
Author Organization [facility] [place] [address] Care Team Providers Care Hand Ironer Name Role Phone Shazia Philip MD Primary Care Provider [phone] Encounter Details Date Type Department Care Team (Late st Contact Info) Description 01/08/2020 11:00 AM EDT Ancillary Procedure Pain Management [place] [phone] Don Marquez MD [facility] [place] [address] Pain Social History Tobacco Use Types Packs/Day [...] STORAGE ONLY PAIN CLINIC C ARM Routine 01/08/2020 4:08 PM EDT Pain documented in this encounter Results * Film Library- Storage Only pain Clinic C-Arm (01/08/2020 4:08 PM EDT) Narrative [facility] - 01/08/2020 4:08 PM EDT See PACS for result report. Don Marquez MD IMG FILM LIBRARY ORD ERABLES [place], [place] documented in this encounter Visit Diagnoses Diagnosis Pain Generalized pain documented in this encounter Care Teams Hand Ironer Relationship Specialty Start Date End Date Shazia Philip MD [address] [place] [address] PCP - General General Internal Medicine 01/24/19 documented as of this encounter
--- OUTSIDE RECORDS SUMMARY | 2023-12-01 16:59 | XMS_ITS | Encounter Summary ---
Author Organization [facility] [place] [address] Care Team Providers Care Bar Staff Name Role Phone Shazia Philip MD Primary Care Provider [phone] Encounter Details Date Type Department Care Team (Late st Contact Info) Description 01/01/2020 Telephone [facility] [place] [address] Belia Ramon RN Social History Tobacco Use Types Packs/Day Years Used Date Smoking Tobacco: Never Smokeless Tobacco: Never Sex and Gender Information Value Date Recorded Sex Assigned at Not on file Gender Identity Not on file Sexual Orientation Not on file documented as of this encounter Miscellaneous Notes * Telephone Encounter - Belia Ramon RN - 01/01/2020 2:39 PM EDT Fluoroscopy Procedure Request Procedure Requested: Bilateral L4, L5-DR or S1 lumbar epidural steroid injection Date(s) of Last Procedure: 10/23/19 Did requested procedure relieve pain? _x__ Yes - For how long 2 months 90% of relief received from previous injection. _ What is your current Pain Score (1-10 range)? 5/10 Have you had any steroid injections anywhere in your body within the last two weeks? no Patient taking any NSAIDs? __x_ Yes Patient taking Aspirin? __x_ No Patient taking anticoagulants? __x_ No _ . Patient has pacemaker/defibrillator: No Changes in usual pain pattern or pertinent recent trauma or surgery? __x_ No, patient transferred or will be contacted by medical office scheduler to make appointment for requested procedure. Patient's questions regarding requested procedure were answered and patient verbalized understanding. Patient knows how to contact the Pain Management Center and understands that they may do so at any time should they have further questions or concerns. @MES@ documented in this encounter Plan of Treatment Not on file documented as of this encounter Visit Diagnoses Not on filedocumented in this encounter Care Teams Bar Staff Relationship Specialty Start Date End Date Shazia Philip MD [address] [place] [address] PCP - General General Internal Medicine 01/24/19 documented as of this encounter
--- OUTSIDE RECORDS SUMMARY | 2023-12-01 16:59 | XMS_ITS | Encounter Summary ---
[place] [address] Care Team Providers Care Truck Driver Supervisor Name Role Phone Shazia Philip MD Primary Care Provider [phone] Encounter Details Date Type Department Care Team (Late st Contact Info) Description 10/18/2019 Telephone [facility] [place] [phone] Manoj Berrios RN Social History Tobacco Use Types Packs/Day Years Used Date Smoking Tobacco: Never Smokeless Tobacco: Never Sex and Gender Information Value Date Recorded Sex Assigned at Not on file Gender Identity Not on file Sexual Orientation Not on file documented as of this encounter Miscellaneous Notes * Telephone Encounter - Manoj Berrios RN - 10/18/2019 9:35 AM EDT Michael Esqueda :[id number] Contact made with patient: I spoke to Mr. Esqueda at 9:35 AM regarding his upcoming Neither lumbar medial branch block scheduled on 10/23/2019 (date) scheduled at 1445 (time) with Dr. Don Marquez MD. Medication and Allergy reconciliation: 1. Changes were made in the telephone encounter per patient; marked as reviewed, and closed. 2. Patient confirmed no IVP dye allergy. 3. Have you had any steroid injections anywhere in your body within the last two weeks? no Arrival time: The patient was instructed to arrive at 1415 (30 minutes prior to procedure start time - 60 minutesprior for RF patients with a pacemaker) on 10/23/2019 (date of procedure). Antibiotics/Skin assessment/Illness symptoms/Pain level assessment : 1. The patient confirmed that she is not taking antibiotics at this time. 2. The patient confirmed that she has notbeen in the emergency room in the last two weeks. 3.. The patient confirmed that he does not have any rashes, blisters, or skin breakdown on their body. 4. The patient confirmed that he does not have any active infections. 5. The patient confirmed that he and any household members have not had any symptoms of illness within the past 14 days: fever, chills, cold, flu, nausea, vomiting, diarrhea, shortness of breath, loss of taste, or recent stroke. 6. The patient confirmed that he is still experiencing significant pain. (Significant pain is defined as interfering with performing ADL.) 7. The patient confirmed that he have not been in contact with anyone known or suspected to have COVID-19. 8. The patient confirmed that he have not been suspected or tested for COVID-19 Pain and Anti-anxiety Medications: 1. Nerve Block Procedure Patients: Patient was instructed NOT to take their pain medications on theday of the procedure and anti-anxiety medications are part of their daily medication regiment; theycan and should continue taking that medication. 2. All Other Procedure Patients: The patient was instructed that if they take daily pain or anti-anxiety medications, they can and should continue taking on the day of the procedure. Does patient have history of any diagnosed bleeding disorders: No Anticoagulants: No NSAIDs: Does the patient take Aspirin/ASA? No . Does the patient take an NSAID? Yes The patient confirmed that he discontinued taking ibuprofen (Motrin) on 10/22/2019 (date). Implant: Patient has pacemaker/defibrillator: No WHAT TO EXPECT DAY OF PROCEDURE - Patient will arrive at entrance and be screened (temp and symptoms) - Patient will be given a mask; They are required to wear the mask appropriately (covering nose andmouth) the entire time that they are in the [facility] (Including during the procedure). If for some reason they feel that they will have difficulty with this, their procedure will have to be postponed. - If patient is ambulatory, will proceed to waiting room unaccompanied. - If patient requires assistance (either with mobility or from a cognitive standpoint), caregiver can accompany them to the waiting room. They will need to be given the visitor code. - Nurse will meet patient in waiting room and ask Screening Questions - Patient's ???ride?? will wait outside of the hospital until the procedure is done. A reliable phone number will be left with the nurse and the ???ride?? will be contacted at the end of the procedure. They will come to the Main Entrance. Patient will be brought to the Main Entrance after the procedure. Prior to checking in at 3D Boiler House Mechanic, please be sure to empty your bladder. Patient confirmed understanding that if they do not follow the above instructions, their procedure is likely to be cancelled. HERB Aranda documented in this encounter Plan of Treatment Not on file documented as of this encounter Visit Diagnoses Not on filedocumented in this encounter Care Teams Truck Driver Supervisor Relationship Specialty Start Date End Date Shazia Philip MD [address] [place] [address] PCP - General General Internal Medicine 01/24/19 documented as of this encounter
--- OUTSIDE RECORDS SUMMARY | 2023-12-01 16:59 | XMS_ITS | Encounter Summary ---
Author Organization [facility] [place] [address] Care Team Providers Care Supervisor Cook House Name Role Phone Shazia Philip MD Primary Care Provider [phone] Reason for Visit * Reason Comments Shoulder Pain Encounter Details Date Type Department Care Team (Latest Contact Info) Description 01/22/2020 8:00 AM EDT TH Visit (TeleHealth) [facility] [place] [address] Tami Jones APRN [facility] [place] [address] Chronic left shoulder pain Social History Tobacco Use Types Packs/Day Years [...] (160 lb) 01/21/2020 3:44 PM EDT Height - - Body Mass Index 25.06 01/08/2020 10:30 AM EDT documented in this encounter Progress Notes * Tami Jones APRN - 01/22/2020 8:00 AM EDT [facility] Telephone visit Due to the current public health restrictions in place for the coronavirus pandemic, the patient agreed to a telephone visit. Chief Complaint: Left shoulder pain Subjective: 64 yo male patient previously seen for chronic low back pain, has had??bilateral L3/4, L4/5 and L5/S1 facets with intra-articular joint injection, 10/23/2019 and 01/08/2020. He states this took 12 days for him to have benefit from this but now is having some benefit. His primary concern at this time is his left shoulder pain. Mr. Esqueda states that he has been having left shoulder pain for many years and has gradually beengetting worse. Decision Making/Plan: Recommend Mr. Esqueda schedule with his orthopedist at [facility] for evaluation of his left shoulder pain. Patient verbally consents to this telephone visit and understands that this visit may be billed, similar to a clinic office visit. I provided care to the patient today via telephone call. The total time associated with this visit was 5 minutes. Tami Jones APRN documented in this encounter Plan of Treatment Not on file documented as of this encounter Visit Diagnoses Diagnosis Chronic left shoulder pain Pain in joint, shoulder region documented in this encounter Care Teams Supervisor Cook House Relationship Specialty Start Date End Date Shazia Philip MD [address] [place] [address] PCP - General General Internal Medicine 01/24/19 documented as of this encounter
--- OUTSIDE RECORDS SUMMARY | 2023-12-01 16:59 | XMS_ITS | Encounter Summary ---
Author Organization [facility] [place] [address] Care Team Providers Care Apprise Counselor Name Role Phone Shazia Philip MD Primary Care Provider [phone] Encounter Details Date Type Department Care Team (Late st Contact Info) Description 10/23/2019 2:45 PM EDT - 10/23/2019 4:00 PM EDT [place] [phone] Don Marquez MD [facility] [place] [address] INJECTION, FACET JOINT, W\FLUORO, LUMBAR, SINGLE (WRVU [...] file Gets together: Not on file Attends spiritism service: Not on file Active member of [...] encounter Miscellaneous Notes * Op Note - Mil Bravo MD - 10/23/2019 3:36 PM EDT Pain Management Operative Note Patient Name: Michael Esqueda : [id number] MR#: [id number] Case Date: 10/23/2019 Surgeon: Surgeon(s) and Role: * Don Marquez MD - Primary * Mil Bravo MD - Fellow Present on Admission: ??? Spondylosis without myelopathy or radiculopathy, lumbar region INTRA-ARTICULAR FACET JOINT INJECTION Date of Service: 10/14/2019 Patient: Michael Esqueda Provider: Mil Bravo MD Michael Esqueda [...] significant component of the usual pain. Mr. Beckman vital signs were stable throughout the procedure [...] (2.5 mg/mL) injection ONCE PRN, Starting on Mon10/23/19 at 1502, Until Mon10/23/19 at 1749, Intra-Operative (Intra-Procedure), Routine Given 10/23/2019 3:02 PM EDT 2 mLs iohexoL (OMNIPAQUE) 240 mg/mL solution ONCE PRN, Starting on Mon10/23/19 at 1503, Until Mon10/23/19 at 1749, Intra-Operative (Intra-Procedure), Routine Given 10/23/2019 3:03 PM EDT 1.5 mLs methylPREDNISolone acetate (DEPO-Medrol) injection ONCE PRN, Starting on Mon10/23/19 at 1503, Until Mon10/23/19 at 1749, Intra-Operative (Intra-Procedure), Routine Given 10/23/2019 3:03 PM EDT 100 mg documented in this encounter Active and [...] MD) documented in this encounter Care Teams Apprise Counselor Relationship Specialty Start Date End Date Shazia Philip MD [address] [place] [address] PCP - General General Internal Medicine 01/24/19 documented as of this encounter
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
--- OUTSIDE RECORDS SUMMARY | 2023-12-01 16:59 | XMS_ITS | Encounter Summary ---
Author Organization [facility] [place] [address] Care Team Providers Care Rock Star Name Role Phone Shazia Philip MD Primary Care Provider + [phone] Encounter Details Date Type Department Care Team (Late st Contact Info) Description 01/01/2020 Telephone [facility] [place] [phone] Cheryle Lindsey Social History Tobacco Use Types Packs/Day Years Used Date Smoking Tobacco: Never Smokeless Tobacco: Never Sex and Gender Information Value Date Recorded Sex Assigned at Not on file Gender Identity Not on file Sexual Orientation Not on file documented as of this encounter Miscellaneous Notes * Telephone Encounter - Cheryle Lindsey - 01/01/2020 3:11 PM EDT Procedure: LESI MRI required? yes (If yes, verify that updated MRI is in eDH) (Atlanto-Axial Joint injection, DANA; 1 year or <)(Caudal ANDRES, LESI, Thoracic ANDRES, TFESI Lumbar & Cervical; 2 years or <) Referring Provider: Jazzmine Roach Are you on any blood thinners? no (If yes, specify medication type and prescribing provider for anticoagulant hold request) Medication: Prescribing provider: Anticoagulant Medication Therapy Protocol Guide for Procedures: Medication Must stop prior May resume Labs Coumadin (Warfarin) 5 days Per Prescriber 1 hour prior (<1.2) PT/INR Plavix (Clopidogrel) 7 days Per Prescriber n/a Fragmin (Dalteparin) 24 hours Per Prescriber n/a Lovenox (Enoxaparin) 24 hours Per Prescriber n/a Ticlid (Ticlopidine) 14 days Per Prescriber n/a Innohep (Tinzaparin) 24 hours Per Prescriber n/a Aggrenox (Dipyridamole) 7 days Per Prescriber n/a Pletal (Cilostazol) 2 days Per Prescriber n/a Pradaxa (Dabigretran) 5 days Per Prescriber n/a Xarelto (Rivaroxaban) 3 days 24 hours after n/a Eliquis (Apixaban) 3 days Per Prescriber n/a Inlyta (Axitinib) 24 hours 48 hours after n/a Agrylin (Anagrelide) N/a n/a Day of procedure Platelet count Effient (Prasugrel) 7 days Per Prescriber n/a Brilinta (Ticagrelor) 5 days Per Prescriber n/a Trental (Pentoxifylline) 2 days Per Prescriber n/a Aspirin (ASA, Chris, Excedrin) 6 days Per Prescriber n/a Aggrastat (Tirofiban) 8 hours Per Prescriber n/a Angiomax (Bivalirudin) Must be discussed with provider before scheduling Per Provider Argatroban Must be discussed with provider before scheduling Per Provider Arixta (Fondaparinux) 4 days Per Prescriber n/a Effient (Prasugrel) 7 days Per Prescriber n/a Elmiron (Pentosan) 7 days Per Prescriber n/a Heparin, subq (Hemochron) 12 hours Per Prescriber n/a Integrelin (Eptifibatide) 8 hours Per Prescriber n/a Iprivask (Desirudin) Must be discussed with provider before scheduling Per Provider Normiflo (Ardeparin) 24 hours Per Prescriber n/a Persantine (Dipyridamole) 2 days Per Prescriber n/a Reopro (Abciximab) 2 days Per Prescriber n/a Are you taking any NSAIDs? yes Type of NSAID: Ibuprofen Non-Steroidal Anti-Inflammatory Drug Guidelines: Medication Other Names Recommended Discontinuation Can Resume Aspirin - 81 mg and 325 mg (Note: If recommended or prescribed by provider, contact Pain Management) ASA, Chris, Excedrein 6 days Per Prescriber Diclofenac Voltaren 1 day 24 hours after Etodolac Lodine 2 days 24 hours after Flurbiprofen Ansaid 7 days 24 hours after Ibuprofen Advil, Motrin, Midol 1 day 24 hours after Indomethicin Indocin 2 days 24 hours after Ketorolac Toradol 1 day 24 hours after Meloxicam Mobic 4 days 24 hours after Nabumetone Relafen 6 days 24 hours after Naproxen Naprosyn, Aleve 4 days 24 hours after Oxaprozin Daypro 10 days 24 hours after Piroxicam Feldene 10 days 24 hours after Salsalate Disalcid 1 day 24 hours after Nutritional Supplements Fish Oil, Ginko Biloba, Garlic, Vitamin E, Bromelain, Nattokinase 7 days 24hours after Currently taking any oral steroids (i.e. prednisone) or have you had a steroid injection within thepast two weeks? no Are you currently taking or have you recently been treated with antibiotics? no Have you been in the ER or hospitalized recently? no If yes. Why? Do you have any allergies to anesthetics or steroids? no Are you diabetic? no (In the case of type I diabetes, steroids injections can make blood sugar spike) Is this being billed to workers comp or your regular insurance (verify insurance)? Worker's Comp no Insurance: Medicare A&B Completed by: Cheryle documented in this encounter Plan of Treatment Not on file documented as of this encounter Visit Diagnoses Not on filedocumented in this encounter Care Teams Rock Star Relationship Specialty Start Date End Date Shazia Philip MD [address] [place] [address] PCP - General General Internal Medicine 01/24/19 documented as of this encounter
--- OUTSIDE RECORDS SUMMARY | 2023-12-01 17:00 | XMS_ITS | Encounter Summary ---
Author Organization [facility] Address [facility] [place] [address] Care Team Providers Care Make Up Arranger Name Role Phone Shazia Philip MD Primary Care Provider [phone] Encounter Details Date Type Department Care Team (Late st Contact Info) Description 02/19/2019 2:00 PM EDT - 02/19/2019 3:00 PM EDT Surgery Pain Management [place] [phone] Kaitlynn Tony MD [facility] [place] [address] INJECTION, FACET JOINT, W\FLUORO, LUMBAR, SINGLE (WRVU 1.52) Social History Tobacco Use Types Packs/Day Years Used Date Smoking Tobacco: Never Smokeless Tobacco: Never Sex and Gender Information Value Date Recorded Sex Assigned at Not on file Gender Identity Not on file Sexual Orientation Not on file documented as of this encounter Last Filed Vital Signs Vital Sign Reading Time Taken Comments Blood Pressure 119/83 02/19/2019 2:30 PM EDT Pulse - - Temperature - - Respiratory Rate 20 02/19/2019 2:30 PM EDT Oxygen Saturation 97% 02/19/2019 2:30 PM EDT Inhaled Oxygen Concentration - - Weight 72.6 kg (160 lb) 02/19/2019 1:55 PM EDT Height 170.2 cm (5' 7) 02/19/2019 1:55 PM EDT Body Mass Index 25.06 02/19/2019 1:55 PM EDT documented in this encounter Discharge Instructions * Discharge Instructions* Teodora Monahan RN - 02/19/2019 2:37 PM EDT Pain Management Center Discharge Instructions: You were seen today by Surgeon(s): Kaitlynn Tony MD The following was performed: Procedure(s) (LRB): [...] site. You may resume your normal activities: today. You may shower today. DO NOT tub [...] During Procedure Date/Time Order Dose Route Action 02/19/2019 1426 iohexol (OMNIPAQUE) 240 mg/mL solution 1 mL Intra-articular Given 02/19/2019 1431 lidocaine (XYLOCAINE) 20 mg/mL (2 %) injection 3 mL Subcutaneous Given During regular business hours, please phone [...] or proceed to your local emergency department. Teodora Monahan RN Special instructions Pain Management Center Post -Procedure Pain Log Patient: Michael Esqueda [id number] It is important for you to keep track of your pain after your procedure that took place 02/15/2019. This information will help your Provider to determine how to help reduce your pain. Today you had a procedure for pain in your back Your pain level before the procedure in this area was 10/10. Your pain level immediately after your procedure was 6/10. Time Pain Score # Comments: % pain relief 1 hour 3:30 2 hours 4:30 3 hours 5:30 4 hours 6:30 Please call the nurse in the Pain Management Center a day or two after your procedure and report the information above. She will assess your response to the procedure, and will recommend appropriate follow-up. documented in this encounter Medications at Time of Discharge Medication Sig Dispensed Refills Start Date End Date methadone (DOLOPHINE) 10 mg Tablet Take 10 mg by mouth 2 times daily. 0 12/29/2018 tadalafil (CIALIS) 5 mg Tablet as needed. 3 12/30/2018 documented as of this encounter H&P Notes * Mil Bravo MD - 02/19/2019 1:55 PM EDT Patient Name: Michael Esqueda Patient Age: 63 y.o. Birthdate: 1955 Admit date: 02/19/2019 Attending Physician: Kaitlynn Tony MD PREPROCEDURE HISTORY AND PHYSICAL Date of Visit: February 19, 2019 Chief Complaint: Low back pain HPI: Subjective Michael Esqueda is a 63 y.o. male who presents today for lumbar medial branch blocks. The history is obtained from the patient, [...] to Encounter Medication Sig Dispense Refill ??? methadone (DOLOPHINE) 10 mg Tablet Take [...] resource strain: Not on file ??? Food insecurity: Worry: Not on file Inability: Not on file ??? Transportation needs: Medical: Not on file Non-medical: Not on file Tobacco Use ??? Smoking status: Never Smoker ??? Smokeless tobacco: Never Used Substance and Sexual Activity ??? Alcohol use: Not on file ??? Drug use: Not on file ??? Sexual activity: Not on file Lifestyle ??? Physical activity: Days per week: Not on file Minutes per session: Not on file ??? Stress: Not on file Relationships ??? Social connections: Talks on phone: Not on file Gets together: Not on file Attends nondenominational service: Not on file Active member of club or organization: Not on file Attends meetings of clubs or organizations: Not on file Relationship status: Not on file ??? Intimate partner violence: Fear of current or ex partner: Not [...] Psychiatric: Normal mood and affect. RADIOLOGIC DATA: MRI reviewed LABS/DX RESULTS: Last wbc, hgb, hct plt No results for input(s): WBC, HGB, HCT in the last 72 hours. Invalid input(s): PLT ASSESSMENT: Assessment 1. Lumbar spondylosis PLAN: 1. Lumbar spondylosis Will proceed with bilateral lumbar medial branch blocks as planned documented in this encounter Miscellaneous Notes * Op Note - Kaitlynn Tony MD - 02/19/2019 2:12 PM EDT Pain Management Operative Note Patient Name: Michael Esqueda : [id number] MR#: [id number] Case Date: 02/19/2019 Surgeon: Surgeon(s) and Role: * Kaitlynn Tony MD - Primary Present on Admission: ??? Lumbar spondylosis Postoperative diagnosis: Lumbar spondylosis Procedure(s) (LRB): INJECTION, FACET JOINT, W\FLUORO, LUMBAR, SINGLE (WRVU 1.52) (Bilateral) INJECTION, FACET JOINT, W\FLUORO, LUMBAR, 2ND LEVEL (WRVU 1) (Bilateral) INJECTION, FACET JOINT, W\FLUORO, LUMBAR, 3RD LEVEL (WRVU 1) (Bilateral) PROCEDURE NOTE ?? BILATERAL L 2,3,4 LUMBAR MEDIAL BRANCH DIAGNOSTIC BLOCKS ? Date of Service: 01/24/2019 Patient: Michael Esqueda ?? Referring Physician: [facility] Md Jonas [address] [place] [address] ?? Diagnosis: 1. Chronic bilateral low back pain without sciatica 2. Lumbar facet arthropathy ? Pre-procedure Note ?? History and Exam: Patient demonstrates today moderate to severe non- radicular back pain without neurologic deficit aggravated by hyperextension Yes Back pain greater than leg pain Yes Patient today has tenderness over the suspected joint(s) Yes History of post-traumatic injury Yes Hypertrophic arthropathy Yes Back pain associated with suspected motion segment instability or Hypermobility or pseudoarthrosis No Pre-testing pain score (VAS): 10 ? Previous medial branch block testing?: Yes ? Today's Operative Note ?? Michael Esqueda was greeted by the nurse who verified the patients name and . Patient was thentaken to the fluoroscopy suite. ?? Mr. Esqueda was interviewed and the medical record was reviewed. There were no medical contraindications to performing the bilateral lumbar medial branch nerve blocks. ?? I first had a talk with the patient and discussed the potential risks, benefits, side effects, and alternatives of this procedure including but not limited to increased pain from the procedure, no pain relief, nerve damage, infection, and bleeding. he comprehended my conversation and accepts the risks and understands the goals of this diagnostic procedure. All questions and concerns from the patient were addressed. After I was comfortable that the patient was fully informed about this procedure, the printed consent form was signed. Standard time-out procedure was performed ?? Mr. Esqueda was placed in the prone position on the fluoroscopy table and automated blood pressure cuff and pulse oximeter were applied. The anatomic target points of the segmental medial branches ofbilaterally L2, L3 and L4were identified with fluoroscopy. Following thorough Chlorhexadine preparation of the skin and draping, a 25 gauge 3.5 spinal needle was placed under fluoroscopic guidance down on to the target point for each respective segmental medial branch.Position was confirmed in A/P, oblique and lateral views. Next 0.25 ml of Omnipaque was injected at each level and was seen in expected distribution without aberrant uptake. At each level we injected 0.5ml of Lidocaine 2%. ?? Mr. Esqueda's vital signs were stable throughout the procedure and were as recorded in the docflowsheet by the nursing staff. ?? Postoperatively, today patient demonstrates the following changes with hyperextension and with tenderness over the suspected joint(s). ? Provacative testing using the Stockton's facet loading test Right side Left side Directly before the block VAS (0-10) = 10 VAS (0-10) = 10 5 minutes after the block VAS (0-10) = 6 VAS (0-10) = 6 Percentage relief obtained with this diagnostic block 40% 40% ?? Any improved physical functioning directly after the blocks? Patient pivoted from stretcher to standing with 1 assist and reported that his back pain has improved to 50% compared to before procedure ?? Next, he was asked to recordhis percent pain relief and any changes in provocative maneuvers for the next 4 hours. He will report this information at the next business day to one of our nurses. ?? Based on the medial branches blocked today, if the patient meets insurance criteria for radiofrequency, the treatment should result in the denervation of the bilaterally L3-L4 and L4-L5 facet joint nerves. ?? We would expect to denervate a total of 4 facets during the radiofrequency ablation. ?? Discharge plan:: He will call back with his 0-4 hour post-procedure pain scores. ?? Comment: given patient's prior spinal cord injury, patient needed 2 people assist to transfer from wheelchair, please schedule for future procedures extra time for patient positioning. ?? I have seen and examined the patient and reviewed the fellow's above history and I agree with the details as written. I was the attending physician supervising the fellow in the above care and I was present with the fellow for the entire procedure. Kaitlynn Tony MD Pain Management Center Assisant Professor of Anesthesiology [facility] [employer] [address] [phone] / [facility] documented in this encounter Plan of Treatment Not on file documented as of this encounter Visit Diagnoses Diagnosis Lumbar spondylosis Lumbosacral spondylosis without myelopathy Lumbar spondylosis Lumbosacral spondylosis without myelopathy Chronic bilateral low back pain without sciatica Lumbar facet arthropathy Lumbosacral spondylosis without myelopathy documented in this encounter Administered Medications Inactive Administered Medications - up to 3 most recent administrations Medication Order MAR Action Action Date Dose Rate Site iohexol (OMNIPAQUE) 240 mg/mL solution ONCE PRN, Starting on Mon02/19/19 at 1426, Until Mon02/19/19 at 1638, Intra-Operative (Intra-Procedure), Routine Given 02/19/2019 2:26 PM EDT 1 mL lidocaine (XYLOCAINE) 20 mg/mL (2 %) injection ONCE PRN, Starting on e 02/19/19 at 1431, Until Mon02/19/19 at 1638, Intra-Operative (Intra-Procedure), Routine Given 02/19/2019 2:31 PM EDT 3 mLs documented in this encounter Active and Recently Administered Medications Times are shown in EDT. PRN Medication Order 02/17/2019 02/18/2019 02/19/2019 iohexol (OMNIPAQUE) 240 mg/mL solution (CANCELED) ONCE PRN, Starting on Mon02/19/19 at 1426, Until Mon02/19/19 at 1638, Intra-Operative (Intra-Procedure), Routine 1426 (Given - Provid er: Kaitlynn Tony MD) lidocaine (XYLOCAINE) 20 mg/mL (2 %) injection (CANCELED) ONCE PRN, Starting on e 02/19/19 at 1431, Until Mon02/19/19 at 1638, Intra-Operative (Intra-Procedure), Routine 1431 (Given - Provid er: Kaitlynn Tony MD - Comment: Bilateral lumbar medial branch block) documented in this encounter Care Teams Make Up Arranger Relationship Specialty Start Date End Date Shazia Philip MD [address] [place] [address] PCP - General General Internal Medicine 01/24/19 documented as of this encounter
--- OUTSIDE RECORDS SUMMARY | 2023-12-01 17:00 | XMS_ITS | Encounter Summary ---
Author Organization [facility] Address [address] [place] [address] Care Team Providers Care Equipment Service Lead Name Role Phone Jaleel Delacruz MD Primary Care Provider Unav ailable Encounter Details Date Type Department Care Team (Latest Contact Info) Description 02/02/2009 14:40 EDT Hospital Encounter [address] [address] Jaleel Delacruz MD Discharge Disposition: Home or Self Care Social History Tobacco Use Types Packs/Day Years Used Date Smoking Tobacco: Never Assessed Sex and Gender Information Value Date Recorded Sex Assigned at Not on file Gender Identity Not on file Sexual Orientation Not on file documented as of this encounter Discharge Disposition Disposition Code Departure Means Destination Home or Self Correction documented in this encounter Plan of Treatment Not on file documented as of this encounter Visit Diagnoses Not on filedocumented in this encounter Care Teams Equipment Service Lead Relationship Specialty Start Date End Date Jaleel Delacruz MD PCP - General 12/08/08 documented as of this encounter
--- OUTSIDE RECORDS SUMMARY | 2023-12-01 17:00 | XMS_ITS | Encounter Summary ---
Author Organization [facility] Address [address] [place] [address] Care Team Providers Care Car Stereo Installer Name Role Phone Jaleel Delacruz MD Primary Care Provider Unav ailable Encounter Details Date Type Department Care Team (Latest Contact Info) Description 06/23/2009 10:02 EST - 06/23/2009 23:59 EST Hospital Encounter [address] [address] Jaleel Delacruz MD Discharge Disposition: Home or Self Care Social History Tobacco Use Types Packs/Day Years Used Date Smoking Tobacco: Never Assessed Sex and Gender Information Value Date Recorded Sex Assigned at Not on file Gender Identity Not on file Sexual Orientation Not on file documented as of this encounter Discharge Disposition Disposition Code Departure Means Destination Home or Self [facility] documented in this encounter Plan of Treatment Not on file documented as of this encounter Visit Diagnoses Not on filedocumented in this encounter Care Teams Car Stereo Installer Relationship Specialty Start Date End Date Jaleel Delacruz MD PCP - General 12/08/08 documented as of this encounter
--- OUTSIDE RECORDS SUMMARY | 2023-12-01 17:00 | XMS_ITS | Encounter Summary ---
Author Organization [facility] [place] [address] Care Team Providers Care Pill Machine Operator Name Role Phone Shazia Philip MD Primary Care Provider [phone] Encounter Details Date Type Department Care Team (Late st Contact Info) Description 03/15/2019 Telephone [facility] [place] [phone] Manoj Berrios RN Social History Tobacco Use Types Packs/Day Years Used Date Smoking Tobacco: Never Smokeless Tobacco: Never Sex and Gender Information Value Date Recorded Sex Assigned at Not on file Gender Identity Not on file Sexual Orientation Not on file documented as of this encounter Miscellaneous Notes * Telephone Encounter - Manoj Berrios RN - 03/15/2019 3:56 PM EDT Michael Esqueda :1955 Contact made with patient: I spoke to Mr. Esqueda at 3:56 PM regarding his upcoming Bilateral lumbar radiofrequency scheduled on 03/20/2019 (date) scheduled at 1300 (time) with Dr. Amanda DO. Medication and Allergy reconciliation: 1. Changes were made in the telephone encounter per patient; marked as reviewed, and closed. 2. Patient confirmed no IVP dye allergy. 3. Have you had any steroid injections anywhere in your body within the last two weeks? no Arrival time: The patient was instructed to arrive at 1230 (30 minutes prior to procedure start time - 60 minutesprior for RF patients with a pacemaker) on 03/20/2019 (date of procedure). Stack Attendant: The patient was reminded that they need to have a transport driver accompany them to his procedure who will remain onsite. Antibiotics/Skin assessment/Illness symptoms/Pain level assessment : 1. The patient confirmed that he is not taking antibiotics at this time. 2. The patient confirmed that he does not have any rashes, blisters, or skin breakdown on their body. 3. The patient confirmed that he does not have any active infections. 4. The patient confirmed that he does not have any symptoms of illness: fever, chills, cold, flu, nausea, vomiting. 5. The patient confirmed that he is notstill experiencing significant pain. (Significant pain is defined as interfering with performing ADL.) Pain and Anti-anxiety Medications: 1. Nerve Block [...] any diagnosed bleeding disorders: No Anticoagulants: No NPO instructions given to patient: Pt denied IV for procedure NSAIDs: Does the patient take Aspirin/ASA? No Does the patient take an NSAID? No Diabetic instructions: Patient was advised to inform their PCP regarding safe fasting and the NPO requirements for their upcoming procedure and given the Pain Management Center Nurse Triage Line . Implant: Patient has pacemaker/defibrillator: No Prior to checking in at 3D Pipe Organ Mechanic, please be sure to empty your bladder. Patient confirmed understanding that if they do not follow the above their instructions, their procedure is likely to be cancelled. HERB Aranda documented in this encounter Plan of Treatment Not on file documented as of this encounter Visit Diagnoses Not on filedocumented in this encounter Care Teams Pill Machine Operator Relationship Specialty Start Date End Date Shazia Philip MD [address] [address] PCP - General General Internal Medicine 01/24/19 documented as of this encounter
--- OUTSIDE RECORDS SUMMARY | 2023-12-01 17:00 | XMS_ITS | Encounter Summary ---
Author Organization [facility] Address [address] [place] [address] Care Team Providers Care Supervisor Finishing Room Name Role Phone Jaleel Delacruz MD Primary Care Provider Unav ailable Encounter Details Date Type Department Care Team (Latest Contact Info) Description 01/02/2012 17:34 EDT - 01/02/2012 23:59 EDT Hospital Encounter [address] [address] Jaleel Delacruz MD Discharge Disposition: Home or Self Care Social History Tobacco Use Types Packs/Day Years Used Date Smoking Tobacco: Never Assessed Sex and Gender Information Value Date Recorded Sex Assigned at Not on file Gender Identity Not on file Sexual Orientation Not on file documented as of this encounter Medications at Time of Discharge Medication Sig Dispensed Refills Start Date End Date methadone (DOLOPHINE) 5 mg tablet Take 5 mg by mouth every 8 hours. documented as of this encounter Discharge Disposition Disposition Code Departure Means Destination Home or Self Custodial documented in this encounter Plan of Treatment Not on file documented as of this encounter Visit Diagnoses Not on filedocumented in this encounter Care Teams Supervisor Finishing Room Relationship Specialty Start Date End Date Jaleel Delacruz MD PCP - General 12/08/08 documented as of this encounter
--- OUTSIDE RECORDS SUMMARY | 2023-12-01 17:00 | XMS_ITS | Encounter Summary ---
Author Organization [facility] [address] Care Team Providers Care Search Specialist Name Role Phone Shazia Philip MD Primary Care Provider [phone] Encounter Details Date Type Department Care Team (Late st Contact Info) Description 02/11/2019 2:00 PM EDT Ancillary Procedure Pain Management [place] [phone] Don Marquez MD [facility] [address] Pain Social History Tobacco Use Types Packs/Day [...] STORAGE ONLY PAIN CLINIC C ARM Routine 02/15/2019 4:45 PM EDT Pain documented in this encounter Results * Film Library- Storage Only pain Clinic C-Arm (02/15/2019 4:45 PM EDT) Narrative [facility] - 02/15/2019 4:45 PM EDT See PACS for result report. Don Marquez MD IMG FILM LIBRARY ORD ERABLES [place], [place] documented in this encounter Visit Diagnoses Diagnosis Pain Generalized pain documented in this encounter Care Teams Search Specialist Relationship Specialty Start Date End Date Shazia Philip MD [address] [place] [address] PCP - General General Internal Medicine 01/24/19 documented as of this encounter
--- OUTSIDE RECORDS SUMMARY | 2023-12-01 17:00 | XMS_ITS | Encounter Summary ---
Author Organization [facility] Address [address] [place] [address] Care Team Providers Care Vp Product Marketing Name Role Phone Jaleel Delacruz MD Primary Care Provider Unav ailable Reason for Visit * Reason Onset Date Comments Appointment Related 11/30/2011 Encounter Details Date Type Department Care Team (Late st Contact Info) Description 11/30/2011 Telephone [facility] Rehabilitation Therapy - [address] [phone] Lola Jon, PT [address] [place] [phone] Appointment Related Social History Tobacco Use Types Packs/Day Years Used Date Smoking Tobacco: Never Assessed Sex and Gender Information Value Date Recorded Sex Assigned at Not on file Gender Identity Not on file Sexual Orientation Not on file documented as of this encounter Miscellaneous Notes * Telephone Encounter - Cheryle Palmer - 11/30/2011 1553 EDT [facility] [address] [place] [address] Telephone Intake Information for Scheduling NEW Patients for Therapy Referring Provider: Jaleel Delacruz MD Script/referral: Requested via fax Primary Insurance: Medicare If Medicare: Are you receiving any home health or VNA services? No Notes/other: Patient called and left a voicemail message requesting to be seen by Mairssa Jon, PT or Lisandra Bang PT. He has 2 walk aids that he says needs adjusting and that he hasn't used thesein 2 years. PT Evaluation scheduled for 01/02/12 with Marissa. Marissa, please advise if you recommend we schedule further appointments than the evaluation. Cheryle Palmer documented in this encounter Plan of Treatment Not on file documented as of this encounter Visit Diagnoses Not on filedocumented in this encounter Care Teams Vp Product Marketing Relationship Specialty Start Date End Date Jaleel Delacruz MD PCP - General 12/08/08 documented as of this encounter
--- OUTSIDE RECORDS SUMMARY | 2023-12-01 17:00 | XMS_ITS | Encounter Summary ---
Author Organization [facility] Address [address] [place] [address] Care Team Providers Care Car Greaser Name Role Phone Jaleel Delacruz MD Primary Care Provider Unav ailable Reason for Visit * Reason Onset Date Comments Follow-up 01/19/2012 Encounter Details Date Type Department Care Team (Late st Contact Info) Description 01/19/2012 Telephone [facility] Rehabilitation Therapy - [facility] [address] [place] [phone] Mia Jon PT [address] [place] [phone] Follow-up Social History Tobacco Use Types Packs/Day Years Used Date Smoking Tobacco: Never Assessed Sex and Gender Information Value Date Recorded Sex Assigned at Not on file Gender Identity Not on file Sexual Orientation Not on file documented as of this encounter Miscellaneous Notes * Telephone Encounter - Mia Jon PT - 01/19/2012 0959 EDT Call placed to the patient to determine if the changes made to his Walk Aide devices were effective. Message left for the patient to return my call. MIA JON PT documented in this encounter Plan of Treatment Not on file documented as of this encounter Visit Diagnoses Not on filedocumented in this encounter Care Teams Car Greaser Relationship Specialty Start Date End Date Jaleel Delacruz MD PCP - General 12/08/08 documented as of this encounter
--- OUTSIDE RECORDS SUMMARY | 2023-12-01 17:00 | XMS_ITS | Clinical Summary ---
Author Organization [facility] Address [address] [place] [address] Care Team Providers Care Kiln Packer Name Role Phone Jaleel Delacruz MD Primary Care Provider Unav ailable Medications Medication Sig Dispensed Refills Start Date End Date Status methadone (DOLOPHINE) 5 mg tablet Take 5 mg by mouth every 8 hours. Active Surgical History Surgery Date Site/Laterality Comments HERNIA REPAIR 2011 inguinal Medical History Medical History Date Comments Quadriplegia, C5-C7 incomplete ([facility]) November 30 Social History Tobacco Use Types Packs/Day Years Used Date Smoking Tobacco: Never Assessed Sex and Gender Information Value Date Recorded Sex Assigned at Not on file Gender Identity Not on file Sexual Orientation Not on file Obstetrics History Plan of Treatment Health Maintenance Due Date Last Done Comments Hepatitis C Screen 1955 RSV Immunization ( o r 60+ Years) (1 - 1-dose 60+ series) 2017 Fall Risk Screening 2022 COVID-19 Vaccine (24 season) 2023 Care Teams Kiln Packer Relationship Specialty Start Date End Date Jaleel Delacruz MD PCP - General 12/08/08
--- OUTSIDE RECORDS SUMMARY | 2023-12-01 17:00 | XMS_ITS | Encounter Summary ---
Author Organization [facility] Address [address] [place] [address] Care Team Providers Care Manufacturing Process Technician Name Role Phone Jaleel Delacruz MD Primary Care Provider Unav ailable Encounter Details Date Type Department Care Team (Latest Contact Info) Description 12/29/2008 15:46 EDT - 12/29/2008 23:59 EDT Hospital Encounter [address] [address] Jaleel Delacruz MD Discharge Disposition: Home or [...] or Self Correction documented in this encounter Progress Notes * Inpatient, Physician - 10/23/2009 0319 EDT documented in this encounter Plan of Treatment Not on file documented as of this encounter Visit Diagnoses Not on filedocumented in this encounter Care Teams Manufacturing Process Technician Relationship Specialty Start Date End Date Jaleel Delacruz MD PCP - General 12/08/08 documented as of this encounter
--- OUTSIDE RECORDS SUMMARY | 2023-12-01 17:00 | XMS_ITS | Encounter Summary ---
Author Organization [facility] [place] [address] Care Team Providers Care Regroover Name Role Phone Shazia Philip MD Primary Care Provider [phone] Encounter Details Date Type Department Care Team (Late st Contact Info) Description 02/08/2019 Telephone [facility] [place] [phone] Manoj Berrios RN Social History Tobacco Use Types Packs/Day Years Used Date Smoking Tobacco: Never Smokeless Tobacco: Never Sex and Gender Information Value Date Recorded Sex Assigned at Not on file Gender Identity Not on file Sexual Orientation Not on file documented as of this encounter Miscellaneous Notes * Telephone Encounter - Manoj Berrios RN - 02/08/2019 9:01 AM EDT Michael Esqueda :[id number] Contact made with patient: I spoke to Mr. Esqueda at 9:01 AM regarding his upcoming Bilateral lumbar medial branch block scheduled on 02/11/2019 (date) scheduled at 1400 (time) with Dr. Don Marquez MD. Medication and Allergy reconciliation: 1. Changes were made in the telephone encounter per patient; marked as reviewed, and closed. 2. Patient confirmed no IVP dye allergy. 3. Have you had any steroid injections anywhere in your body within the last two weeks? no Arrival time: The patient was instructed to arrive at 1330 (30 minutes prior to procedure start time - 60 minutesprior for RF patients with a pacemaker) on 02/11/2019 (date of procedure). Funds Transfer Clerk: The patient was reminded that they need to have a emergency medical technician/driver accompany them to his procedure who will [...] vomiting. 5. The patient confirmed that he isstill experiencing significant pain. (Significant pain is defined [...] No Prior to checking in at [employer], please be sure to empty your bladder. Patient confirmed understanding that if they do not follow the above their instructions, their procedure is likely to be cancelled. HERB Aranda documented in this encounter Plan of Treatment Not on file documented as of this encounter Visit Diagnoses Not on filedocumented in this encounter Care Teams Regroover Relationship Specialty Start Date End Date Shazia Philip MD [address] [place] [address] PCP - General General Internal Medicine 01/24/19 documented as of this encounter
--- OUTSIDE RECORDS SUMMARY | 2023-12-01 17:00 | XMS_ITS | Encounter Summary ---
Author Organization [facility] Address [facility] [place] [address] Care Team Providers Care Entry Examiner Name Role Phone Shazia Philip MD Primary Care Provider [phone] Encounter Details Date Type Department Care Team (Latest Contact Info) Description 02/19/2019 12:55 PM EDT - 02/19/2019 2:38 PM EDT Hospital Encounter Pain Management [facility] [place] [phone] Kaitlynn Tony MD [facility] [place] [address] Lumbar spondylosis Discharge Disposition: Home Social History Tobacco Use [...] Post -Procedure Pain Log Patient: Michael Esqueda [id number] It is important for you to keep [...] file Gets together: Not on file Attends rastafarian service: Not on file Active member of [...] Operative Note Patient Name: Michael Esqueda : [id number] MR#: [id number] Case Date: 02/19/2019 Surgeon: Surgeon(s) and Role: [...] Esqueda ?? Referring Physician: [place] [address] ?? Diagnosis: 1. Chronic bilateral low back [...] Center Assisant Professor of Anesthesiology [facility] [employer] [address] [phone] / [facility] documented in this encounter Plan of Treatment Not on file documented as of this encounter Visit Diagnoses Diagnosis Lumbar spondylosis Lumbosacral spondylosis without myelopathy Lumbar spondylosis Lumbosacral spondylosis without myelopathy documented in this encounter Active and Recently Administered Medications Times are shown in EDT. PRN Medication Order 02/17/2019 02/18/2019 02/19/2019 iohexol (OMNIPAQUE) 240 mg/mL solution (CANCELED) ONCE PRN, Starting on Mon02/19/19 at 1426, Until Tu02/19/19 at 1638, Intra-Operative (Intra-Procedure), Routine 1426 (Given - Provid er: Kaitlynn Tony MD) lidocaine (XYLOCAINE) 20 mg/mL (2 %) injection (CANCELED) ONCE PRN, Starting on e 02/19/19 at 1431, Until 02/19/19 at 1638, Intra-Operative (Intra-Procedure), Routine 1431 (Given - Provid er: Kaitlynn Tony MD - Comment: Bilateral lumbar medial branch block) documented in this encounter Care Teams Entry Examiner Relationship Specialty Start Date End Date Shazia Philip MD [address] [place] [address] PCP - General General Internal Medicine 01/24/19 documented as of this encounter
--- OUTSIDE RECORDS SUMMARY | 2023-12-01 17:00 | XMS_ITS | Encounter Summary ---
Author Organization [facility] Address [address] [place] [address] Care Team Providers Care Video Photographer Name Role Phone Jaleel Delacruz MD Primary Care Provider Unav ailable Encounter Details Date Type Department Care Team (Late st Contact Info) Description 04/08/2009 Office Visit [facility] L[facility]hedema - [facility] [address] [place], [place] [id number] Lisandra Brock, PT [address] [place] [address] Social History Tobacco Use Types Packs/Day Years Used Date Smoking Tobacco: Never Assessed Sex and Gender Information Value Date Recorded Sex Assigned at Not on file Gender Identity Not on file Sexual Orientation Not on file documented as of this encounter Progress Notes * Lisandra Bang, PT - 06/29/2009 1057 EST [facility] PHYSICAL THERAPY PROGRESS NOTE [facility] DATE OF NOTE: 04/08/09 REFERRING PROVIDER: Jaleel Delacruz MD PRIMARY CARE PROVIDER: Jaleel Delacruz MD DIAGNOSIS: 1. Gait impairment / 781.2 / 2. C5 through C7 incomplete quadriplegia / 344.04. 3. C5 through C7 spinal cord injury, incomplete / 806.05 Sought care for all 12/25/08. TOTAL NUMBER OF VISITS: 32 DATE OF FIRST VISIT: 12/29/08 DATES OF SERVICE: 03/19/09 to 04/08/09 SUBJECTIVE: Mann reports that he is continuing to feel that the walk aids are helping to improve his walking significantly. He states today I can't wait to have these. My legs are getting stronger now that I am using them so often. He says he notices a significant difference between his ability to ambulate with and without the devices in place. He frequently will state that if he had these devices he would ambulate into stores. He would certainly have a much easier time ambulating through hishouse, as well as when he is out in the community. He denies any pain that is limiting to his ability to participate in physical therapy but states that he continues to see a chiropractor on a regular basis. He also continues to feel that he is being carried over in terms of being able to move his feet when the walk aids are not in place. OBJECTIVE: The patient has been receiving physical therapy services twice a day for a total of 4 sessions a week for up to 60-minute sessions. Focus has continued to be on gait training, neuromuscular reeducation, strengthening exercise, functional mobility training and functional electrode stimulation with the use of the walk aid device bilaterally to improve foot clearance during ambulation as well as patient education. Current status is as follows: Orthotic management: Mann has consistently demonstrated the ability to safely and independently donand doff both walk aid cuffs independently. He has been able to independently troubleshoot problemswith electrode placement or electrode wear. He has been able to independently operate the walk aids, change intensity settings, etc. and has been able to properly replace the electrodes once he identified that this was an issue. Gait: He continues to ambulate with bilateral Lofstrand crutches and bilateral walk aids. He does not exhibit any further scissoring to his gait pattern. He is consistently demonstrating full foot clearance of bilateral lower feet throughout the gait cycle with consistent heel strike bilaterally. His lower extremity external rotation remains pronounced but is not limiting to his overall gait pattern and continues to utilize a 4-point reciprocal pattern with his Lofstrand crutches. He demonstrates independence with negotiation of both flat surfaces, carpeted surfaces, small thresholds, pavement, parking lots and mild inclines both on pavement, as well as with grassy surfaces. He continues to require supervision with sidewalk negotiation with occasional balance loss and difficulty with controlling decent. He has not exhibited any loss of balance although he has had some difficulty coming to initial stand with devices firing and him resulting in inability to fully extend his knees. A modification to walk aid parameter has been completed to delay rate of firing and this has allowed for more independent and safe [id number] with the devices engaged. A 6-minute walk test completed on 04/08/09 with bilateral walk aids and crutches: He was able to complete a distance of 280 feet. After parameter adjustment his average distance ambulated on the 6-minute walk has been between 280 to 318 feet in this reporting period. Gait speed was not remeasured today. ASSESSMENT: I feel that Mann has continued to show excellent progress with continued physical therapy for gait training and instruction use of walk aids to help improve his overall gait and mobility.He is currently demonstrating full independence with use of the devices including both donning, doffing, troubleshooting and operating the systems. His gait quality is much improved with elimination of scissoring, as well as full bilateral foot clearance and heel strike, which will greatly diminishhis risk of falls as he is no longer sliding or catching his feet. He has demonstrated the ability to independently ambulate on a multiple of different surface varieties, which are veterans employment representative of what he will need to be able to negotiate in a given day. His distance ambulated in the 6-minute walk test has remained fairly stable and given his level of involvement from his previous spinal cord injury I would suspect that this will remain probably near his maximum but it is grossly considered fu nctional for short community distances. The patient initially did have some difficulty transferringto a standing position with the devices on, but with manipulation of the on threshold and min time resulted in his improved independence and safety with this task. I also feel that his hip weakness will limit his ability to be fully independent with stair and sidewalk negotiation, and have not recommended patient trial these activities with the walk aides currently. At this time I feel that Mann has met all the goals as initially set as part of physical therapy intervention for maximization of independence with management of walk aid systems and at this time will place physical therapy services on hold pending 1 additional visit to be done concurrently with issuing vendor with the devices to finalize instruction and finalize setting for the patient's home use. The patient agrees to and verbalized understanding of the treatment plan. I feel that his prognosis to continue with these goalsis excellent given his response thus far. Review of goals as set on 03/19/09 are as follows and can be current for the next 3 weeks. 1. Independently don and doff walk aid systems bilaterally demonstrating the ability to properly locate correct motor points, test the device and access appropriateness of simulation as well as to modify as needed. Met. 2. Demonstrates the ability to modify simulation or cuff placement while completing a mobility activity and proving his independence to use the device in realized setting. Met. 3. Independent and safe ambulating up to 400 feet in 6-minute walk test with the use of the FES system to improve access to community setting. Plateaued today at between 280 and 310 feet. 4. Independent and safe stepping up and down from one curb to prove ability to step on and off sidewalks and move from his parked car in and out of buildings. Is completing at supervision level currently. 5. Demonstrates the ability to ambulate across uneven terrain independently and safely with consistent firing of walk aids and no loss of balance with restrictive assistive devices. Met today. 6. Independently able to verbalize all aspects of walk aid care, use and maintenance allowing him to independently manage the device for aligning checker. Met. 7. Place his electrode wires within the walk aid cuff independently. Met. 8. Rakes leaves independently with use of bilateral walk aid devices in place. Met. PLAN: Hold physical therapy pending issuance of device via local medical vendor. I would anticipatethis will occur within the next 3 weeks and at that time we will plan 1 additional physical therapyvisit to finalize home use program. Thank you for this referral. Electronically Signed by Lisandra Bang PT 06/29/2009 10:57 Lisandra Bang PT - Lisandra Bang PT P - JCora Job ID: SM Doc ID: [id number] Ext Doc ID: [id number] cc: documented in this encounter Plan of Treatment Not on file documented as of this encounter Visit Diagnoses Not on filedocumented in this encounter Care Teams Video Photographer Relationship Specialty Start Date End Date Jaleel Delacruz MD PCP - General 12/08/08 documented as of this encounter
--- OUTSIDE RECORDS SUMMARY | 2023-12-01 17:00 | XMS_ITS | Encounter Summary ---
Author Organization [facility] Address [address] [place] [address] Care Team Providers Care Pharm Tech Name Role Phone Jaleel Delacruz MD Primary Care Provider Unav ailable Encounter Details Date Type Department Care Team (Latest Contact Info) Description 02/16/2009 13:40 EDT Hospital Encounter [address] [address] Jaleel Delacruz MD Discharge Disposition: Home or Self Care Social History Tobacco Use Types Packs/Day Years Used Date Smoking Tobacco: Never Assessed Sex and Gender Information Value Date Recorded Sex Assigned at Not on file Gender Identity Not on file Sexual Orientation Not on file documented as of this encounter Discharge Disposition Disposition Code Departure Means Destination Home or Self Senior Living documented in this encounter Plan of Treatment Not on file documented as of this encounter Visit Diagnoses Not on filedocumented in this encounter Care Teams Pharm Tech Relationship Specialty Start Date End Date Jaleel Delacruz MD PCP - General 12/08/08 documented as of this encounter
--- OUTSIDE RECORDS SUMMARY | 2023-12-01 17:00 | XMS_ITS | Encounter Summary ---
Author Organization [facility] [place] [address] Care Team Providers Care Post Framer Name Role Phone Shazia Philip MD Primary Care Provider [phone] Encounter Details Date Type Department Care Team (Late st Contact Info) Description 03/20/2019 1:00 PM EST - 03/20/2019 2:15 PM EST [place] [id number] Timbo Patel DO [address] [facility] [place] [address] RADIOFREQUENCY ABLATION,SINGLE FACET JOINT,LUMBAR (WRVU 3.32) Social History Tobacco Use Types Packs/Day Years Used Date Smoking Tobacco: Never Smokeless Tobacco: Never Sex and Gender Information Value Date Recorded Sex Assigned at Not on file Gender Identity Not on file Sexual Orientation Not on file documented as of this encounter Last Filed Vital Signs Vital Sign Reading Time Taken Comments Blood Pressure 123/89 03/20/2019 2:00 PM EST Pulse - - Temperature - - Respiratory Rate - - Oxygen Saturation 90% 03/20/2019 2:00 PM EST Inhaled Oxygen Concentration - - Weight - - Height - - Body Mass Index - - documented in this encounter Discharge Instructions * Discharge Instructions* Belia Ramon, HERB - 03/20/2019 2:01 PM EST Pain Management Center Discharge Instructions: You were seen today by Surgeon(s): Timbo Patel DO The following was performed: Procedure(s) (LRB): RADIOFREQUENCY ABLATION,SINGLE FACET JOINT,LUMBAR (WRVU 3.78) (Bilateral) RADIOFREQUENCY ABLATION,EACH ADD'L FACET JOINT,LUMBAR/SACRAL (WRVU 1.16) (Bilateral) It is normal that the injection [...] During Procedure Date/Time Order Dose Route Action 03/20/2019 1349 BUpivacaine (PF) (MARCAINE) 0.5 % (5 mg/mL) injection 2 mL Other Given 03/20/2019 1329 BUpivacaine (PF) (MARCAINE) 0.5 % (5 mg/mL) injection 3 mL Other Canceled Entry 03/20/2019 1359 lidocaine (PF) (XYLOCAINE) 10 mg/mL (1 %) injection 10 mL Subcutaneous Given 03/20/2019 1330 lidocaine (PF) (XYLOCAINE) 20 mg/mL (2 %) injection 5 mL Subcutaneous Given 03/20/2019 1330 methylPREDNISolone acetate (DEPO-Medrol) injection 40 mg Given During regular business hours, please [...] your local emergency department. Belia Ramon RN Special instructions documented in this encounter Medications at Time of Discharge Medication Sig Dispensed Refills Start Date End Date methadone (DOLOPHINE) 10 mg Tablet Take 10 mg by mouth 2 times daily. 0 12/29/2018 tadalafil (CIALIS) 5 mg Tablet as needed. 3 12/30/2018 documented as of this encounter H&P Notes * Timbo Patel, - 03/20/2019 5:13 AM EST Patient Name: Michael Esqueda Patient Age: 63 y.o. Birthdate: 1955 Admit date: 03/20/2019 Attending Physician: Ijeoma graff. providers found PREPROCEDURE HISTORY AND PHYSICAL Date of Visit: March 20, 2019 Mr. Esqueda presents for bilateral radiofrequency ablation of L2,3,4 medial branches Chief Complaint: Low back pain HPI: Michael Esqueda is a 63 y.o. male who presents today for bilateral RFA of medial branches with a diagnosis of 1. Lumbar spondylosis . The history is obtained from the patient, and I have reviewed medical records provided by the referring physician and located in the electronic medical record to fill in gaps in the patient's recollection of events, treatments and outcomes. PAIN LOCATION: Lower back PAIN LEVEL CURRENT 02/21 PAST MEDICAL HISTORY: No past medical history on file. There are no medical history contraindications to this procedure. PAST SURGICAL HISTORY: No past surgical history on file. There are no past surgical contraindications to this procedure ALLERGIES: Patient has no known allergies. There are no allergic contraindications to this procedure. MEDICATIONS: Current Facility-Administered Medications: ??? BUpivacaine (PF) (MARCAINE) 0.5 % (5 mg/mL) injection, , , Once PRN, Timbo Patel, DO, 2 mL at 03/20/19 1349 ??? lidocaine (PF) (XYLOCAINE) 20 mg/mL (2 %) injection, , , Once PRN, Timbo Patel, DO, 5 mL at105/20/18 1330 ??? methylPREDNISolone acetate (DEPO-Medrol) injection, , , Once PRN, Timbo Patel, DO, 40 mg at105/20/18 1330 ??? lidocaine (PF) (XYLOCAINE) 10 mg/mL (1 %) injection, , , Once PRN, Timbo Patel, DO, 10 mL at 03/20/19 1359 Current Outpatient Medications: ??? methadone (DOLOPHINE) 10 mg Tablet, Take 10 mg by mouth 2 times daily., Disp: , Rfl: 0 ??? tadalafil (CIALIS) 5 mg Tablet, as needed., Disp: , Rfl: 3 There are no medication contraindications to this procedure. FAMILY HISTORY: No family history on file. [...] file Gets together: Not on file Attends adventist service: Not on file Active member of [...] Social History Narrative ??? Not on file There are no social history contraindications to this procedure. ROS: Review of Systems Constitutional: Negative for fever, chills, or recent infection. Respiratory: Negative for shortness of breath. Cardiovascular: Negative for chest pain. Psychiatric/Behavioral: Negative for agitation and behavioral problems. PHYSICAL EXAM: BP 123/89 SpO2 90% Physical Exam Constitutional: He appears well-developed and well-nourished. No distress. Cardiovascular: Normal heart rate. Pulmonary/Chest: Effort normal and breath sounds normal. Skin: He is not diaphoretic. This is no rash, apparent infection, or other abnormality to the area of the proposed injection. There are no physical examination findings which would preclude this procedure. ASSESSMENT: 1. Lumbar spondylosis PLAN: Proceed with procedure as planned - bilateral RFA of L2,3,4 medial branches Thank you for the opportunity to participate in Michael Esqueda's care. Please feel free to contact me with any questions. Sincerely, Timbo Patel D.O., MBA Attending Physician - [facility] documented in this encounter Miscellaneous Notes * Op Note - Timbo Patel DO - 03/20/2019 5:14 AM EST Pain Management Operative Note Patient Name: Michael Esqueda : [id number] MR#: [id number] Case Date: 03/20/2019 Surgeon: Surgeon(s) and Role: * Timbo Patel DO - Primary Procedure(s) (LRB): RADIOFREQUENCY ABLATION,SINGLE FACET JOINT,LUMBAR (WRVU 3.78) (Bilateral) RADIOFREQUENCY ABLATION,EACH ADD'L FACET JOINT,LUMBAR/SACRAL (WRVU 1.16) (Bilateral) LUMBAR/SACRAL MEDIAL BRANCH RADIOFREQUENCY Date of Service: 02/21/2019 Patient: Michael Esqueda Provider: Timbo Patel DO Michael Esqueda has been referred to the Pain Management Center for radiofrequency treatment of chronic axial back pain. Mr. Esqueda has had long standing back pain which is facet joint generated and which has been refractory to other therapies. Local anesthetic medial branch blocks resulted in Mr. Esqueda reporting a significant reduction of the usual axial component of pain for at least the duration of the local anesthetic effect. COMMENTS: The patient wanted no IV sedation - re-offered and discussed at length Mr. Esqueda was interviewed and the medical record reviewed. There were no medical, pharmacologic, radiographic or other structural contraindications to attempting fluoroscopically guided radiofrequency treatment. Risks and expected side effects as well as potential benefit of the procedure were reviewed with Mr. Esqueda, and he voiced concerns addressed. The printed consent form was signed and witnessed. Standard time-out procedure was performed. Mr. Esqueda was placed in the prone position on the fluoroscopy table and automated blood pressure cuff and pulse oximeter applied. The skin entry points for approaching the anatomic target points ofthe segmental medial branches of bilaterally L2, L3, L4 were identified with fluoroscopy and marked. Following thorough Chlorhexadine preparation of the skin and draping and 1% lidocaine infiltrationof the skin entry points and subcutaneous tissues, a single 10 cm 18 guage curved needle with a 10mm active tip radiofrequency cannula was placed under fluoroscopic guidance along or across the anatomic course of each respective segmental medial branch. Each placement was stimulated at 2Hz without any evidence of distal myotomal stimulation. At each placement a continuous mode radiofrequency treatment was done at 80 degrees C for 90 secs and then rotated 180degrees and pulled back 2-3 mm and then repeated. Once the radiofrequency treatment was completed 0.5cc of a 3cc solution of 2cc of 0.5% b upivacaine and Depomedrol (40 mg/cc) was injected at each site followed by skin flushing of the needle tracts with 1% lidocaine. The needles were then removed without difficulty. This radiofrequency treatment should result in the denervation of the bilaterally. A total of 4 facets were expected to be denervated from today's treatment. Mr. Esqueda's vital signs were stable throughout the procedure and were as recorded in the docflowsheet by the nursing staff. If given, dosages of intravenous drugs for anxiolysis and analgesia were documented in the Medication Administration Record (MAR). Follow up plans and appointments were discussed with Michael Esqueda. Post procedure instruction was given as documented in the nursing documentation and having met discharge criteria, he was discharged from the Pain Management Center. I attest that I personally performed the entire procedure. Timbo Patel D.O., MOSES Board Certified in Anesthesia and Pain Medicine Attending Physician - [facility] CC: Jazzmine Roach MD [facility] [address] [place] [address] documented in this encounter Plan of Treatment Not on file documented as of this encounter Visit Diagnoses Diagnosis Lumbar spondylosis- Primary Lumbosacral spondylosis without myelopathy Chronic bilateral low back pain without sciatica Lumbar facet arthropathy Lumbosacral spondylosis without myelopathy documented in this encounter Administered Medications Inactive Administered Medications - up to 3 most recent administrations Medication Order MAR Action Action Date Dose Rate Site BUpivacaine (PF) (MARCAINE) 0.5 % (5 mg/mL) injection ONCE PRN, Starting on Mon03/20/19 at 1329, Until Mon03/20/19 at 1612, Intra-Operative (Intra-Procedure), Routine Given 03/20/2019 1:49 PM EST 2 mLs lidocaine (PF) (XYLOCAINE) 10 mg/mL (1 %) injection ONCE PRN, Starting on Mon03/20/19 at 1359, Until Mon03/20/19 at 1612, Intra-Operative (Intra-Procedure), Routine Given 03/20/2019 1:59 PM EST 10 mLs lidocaine (PF) (XYLOCAINE) 20 mg/mL (2 %) injection ONCE PRN, Starting on Mon03/20/19 at 1330, Until Mon03/20/19 at 1612, Intra-Operative (Intra-Procedure), Routine Given 03/20/2019 1:30 PM EST 5 mLs methylPREDNISolone acetate (DEPO-Medrol) injection ONCE PRN, Starting on Mon03/20/19 at 1330, Until Mon03/20/19 at 1612, Intra-Operative (Intra-Procedure), Routine Given 03/20/2019 1:30 PM EST 40 mg documented in this encounter Active and Recently Administered Medications Times are shown in EST. PRN Medication Order 03/18/2019 03/19/2019 03/20/2019 BUpivacaine (PF) (MARCAINE) 0.5 % (5 mg/mL) injection (CANCELED) ONCE PRN, Starting on Mon03/20/19 at 1329, Until Mon03/20/19 at 1612, Intra-Operative (Intra-Procedure), Routine 1329 (Canceled Entry - Provider: Timbo Patel DO - Comment: Lumbar RFA)1349 (Given - Provider: Timbo Patel DO) lidocaine (PF) (XYLOCAINE) 10 mg/mL (1 %) injection (CANCELED) ONCE PRN, Starting on Mon03/20/19 at 1359, Until Mon03/20/19 at 1612, Intra-Operative (Intra-Procedure), Routine 1359 (Given - Provid er: Timbo Patel DO) lidocaine (PF) (XYLOCAINE) 20 mg/mL (2 %) injection (CANCELED) ONCE PRN, Starting on Mon03/20/19 at 1330, Until Mon03/20/19 at 1612, Intra-Operative (Intra-Procedure), Routine 1330 (Given - Provid er: Timbo Patel DO) methylPREDNISolone acetate (DEPO-Medrol) injection (CANCELED) ONCE PRN, Starting on Mon03/20/19 at 1330, Until Mon03/20/19 at 1612, Intra-Operative (Intra-Procedure), Routine 1330 (Given - Provid er: Timbo Patel DO) documented in this encounter Care Teams Post Framer Relationship Specialty Start Date End Date Shazia Philip MD [address] [address] PCP - General General Internal Medicine 01/24/19 documented as of this encounter
--- OUTSIDE RECORDS SUMMARY | 2023-12-01 17:00 | XMS_ITS | Continuity of Care Document ---
Author Organization [place] - [facility] Address [address] [place] [address] Assessment No assessment recorded. Plan of Treatment Reminders Order Date Submit Date Provider Last Modified By Organization Details Last Modified Time Details Appointments Office Visit 30 2023 03:00P M ANDREA GARCIA Not available Not available Not available Lab CBC - 1 min, 1 lav drawn in house. 2023 [facility] (Registration ), [address] [place] [address] [place], [address], 10/30/2023 22:10:47 CMP, serum or plasma - 1 min, 1 lav drawn in house. 2023 024 [facility] (Registration ), [address] [place] [address] [place], [address], 10/30/2023 22:31:52 Referral None recorded . Procedures None recorded . Surgeries None recorded . Imaging None recorded . Medication Orders methadon e 10 mg tablet 2023 [facility] [address] [address], [place], [address], 10/30/2023 16:14:43 methadon e 10 mg tablet 2023 024 [facility] [address], [address], [place], [address], 10/30/2023 16:14:43 methadon e 10 mg tablet 2023 024 [facility] [address], [address], [place], [address], 10/30/2023 16:14:43 Patient TargetsNo targets recorded. Patient InstructionsNo instructions recorded. Reason for Referral None Reported. Problems Name Status Onset Date Resolution Date Notes Provider Name and Address Organization Details Recorded Time Chronic pain Active 200207/16/2018 - Comments only - Jaleel Delacruz MD - 62-year-old man status post C-spine injury, now with chronic pain. No evidence of diversion of meds or inappropriate use. Plan: Prescriptions given through mid summer. He will return at that time. Disha Meghan [facility], [facility]. 4 19:07:02 Arthrodesis Active 2002 [facility] 4 19:06:53 Muscle pain Completed 201511/09/2015 Problem Code: M79.1; Problem Code Type: ICD-10; Not Available [facility] 3 04:17:26 Adult health examination Active 2015 [facility] Meghan [facility], [facility]. 4 19:06:49 Disorder of skin and/or subcutaneous tissue Completed 201511/13/2015 Problem Code: L98.9; Problem Code Type: ICD-10; Not Available [facility] 3 04:17:26 Erectile dysfunction Active 2016 [facility]. 4 19:07:09 Disorder of right ear Completed 201603/18/2017 Problem Code: H93.8x1; Problem Code Type: ICD-10; Not Available [facility] 3 04:17:26 Disorder of skin and/or subcutaneous tissue Completed 201711/11/2017 Problem Code: L98.9; Problem Code Type: ICD-10; Not Available [facility] 3 04:17:26 Actinic keratosis Completed 201702/10/2018 Problem Code: L57.0; Problem Code Type: ICD-10; Not Available [facility] 3 04:17:26 Therapeutic drug monitoring assay Active 2017 Dishaher Christianson [facility]. 4 19:07:53 Hyperlipidemi a screening Completed 201704/16/2018 Problem Code: Z13.220; Problem Code Type: ICD-10; Not Available [facility] 3 04:17:27 Low back pain Active 2018 Dishaher Christianson [facility]. 4 19:07:21 Tetraplegia Active 2018 Dishaher Christianson [facility] 4 19:07:49 Pain of right forearm Active 2018 Disha Meghan [facility] 4 19:07:38 Other idiopathic peripheral neuropathy NOS Active 2018 [facility] 4 19:07:26 Pain of left shoulder joint Active 201901/24/2020 - Comments only - Lola Mc APRN - Limited ROM but impingement tests okay, man with partial quadriplegia who depends on his arms for mobilization. Referral to Ortho for expert opinion and best joint sparing options including injections, physical therapy in the meantime he will continue his gentle stretching and exercises we gave her him a copy of today. Dishaher Christianson [facility], [facility]. 4 19:07:35 Paresthesia Active 2020 Dishaher Christianson [facility]. 4 19:07:41 Screening for malignant neoplasm of colon Active 2020 Dishaher Christianson [facility]. 4 19:07:46 Genitourinary symptoms Active 2021 Dishaher Christianson [facility]. 4 19:07:13 Dental caries Active 2022 Dishaher Christianson [facility]. 4 19:07:05 Postprocedura l state finding Completed 200202/08/2023 Problem Code: V45.89; Problem Code Type: ICD-9; Not Available [facility] 3 04:17:32 Bilateral feet edema Active [address], [place], [address] , [facility] 4 16:34:26 Ex-smoker Active [address], [facility] [address] , [facility] 4 16:35:49 Notes:*Problem Name: Ex-smok er () *Problem Status: inactive *Comments: *Problem Code: V15.82 *Problem Code Type: ICD-9 *Note Date: 05/23/2002 Problem Notes None recorded. Medical Equipment None Reported. Allergies Allergen ID Allergen Name Allergen Category Reaction Reaction Severity Criticality Documentation Date Start Date Code Code System Note Provider Name and Address Organization Details Recorded Time 19201 meloxicam medicatio n Not available Not available Not available 03/24/20232020 17224 RxNorm Dishaher Meghan maravilla [facility] 4 19:05:32 82508 meloxicam medicatio n other moderate Not available 07/31/20232020 72200 RxNorm No react ion liste d Disha maravilla [facility] 4 19:05:19 Medications Name Sig Start Date Stop Date Status Note LastModified by Organization Details LastModified Time ketoconazol e 2 % shampoo Shampoo as directed twice weekly x 4 weeks, then as needed 05/13 completed Not Available Not Available Not Available methadone 10 mg tablet TAKE ONE TABLET BY MOUTH TWICE A DAY NEEDED FOR PAIN active Not Available Not Available No t Available meloxicam 15 mg tablet Take 1 tab by mouth daily. 07/23 completed Not Available Not Available Not Available Advil 200 mg tablet 2-3 tabs bid prn 05/13 completed Not Available Not Available Not Available Viagra 100 mg tablet 1/2 05/19 completed Not Available Not Available Not Available ketoconazol e 2 % topical cream 1 a small amount to affected area every evening Apply to the rash after showering every night at bedtime. 06/29 completed Not Available Not Available Not Available methadone 5 mg tablet 1-2 BID 05/10 completed Not Available Not Available Not Available tadalafil 5 mg tablet TAKE ONE TABLET BY MOUTH EVERY DAY DIRECTED NEEDED 2023 active Not Available Not Available Not Avai lable Cialis 10 mg tablet Take 1 tablet by mouth at 1 hour prior to anticipat ing intercour se prn 2013 active Not Available Not Available Not Avai lable Arthritis Pain (diclofenac ) 1 % topical gel apply to painful areas twice a day 10/29 completed Not Available Not Available Not Available Vitals Date Recorded Body height Body temperature Oxygen saturation Oxygen saturation in Arterial blood by Pulse oximetry Heart rate Systolic blood pressure Diastolic blood pressure Provider Name and Address Organization Details Last Updated DateTime 4 169.418 cm 97.3 [degF] 96 % 96 % 54 /min 98 mm[Hg] 68 mm[Hg] MAREK CEJA MA [facility] 4 14:34:36 Social History Question Answer Notes LastModified by Organizat ion Details LastModified Time Tobacco Smoking Status Former Smoker ERICKA LUNA RN null, [facility] 12/01/2023 14:57:49 When Did You Quit Smoking? 16+yearssinc elastcigaret te [email or web address] Information not available 12/01/2023 What Was The Date Of Your Most Recent Tobacco Screening? 12/01/2023 [email or web address] Information not available 12/01/2023 Has Tobacco Cessation Counseling Been Provided? No [email or web address] Information not available 12/01/2023 Do You Or Have You Ever Used Any Other Forms Of Tobacco Or Nicotine? No [email or web address] Information not available 12/01/2023 Sex: Male Functional Status None recorded. Mental Status None recorded. Family History Relationship Description Onset Age of this Age Resolved Age Notes Notes:*Problem: Mother: cathie cervantes age b. 1938, healthy; s/p CA Father: alive age b. 1938, healthy, hyperlipidemia, prostate cancer(RT) Sisters: 1, b. 1962, breast cancer Brothers: 2, b. 1957 and 1965, both well Children: 2, b. 1987 and 1988, both well Family History of: Hyperlipidemia: yes Breast cancer: yes Medical History No medical history recorded. Immunizations Vaccine Type Date Status Provider Name and Address Organization Details Recorded Time Tdap 09/11/2013 completed Not Available [facility] 06:09:02 Td(adult) unspecified formulation 11/01/2001 completed Not Available [facility] 03/24/2023 06:09:02 COVID-19, mRNA, LNP-S, PF, 30 mcg/0.3 mL dose 04/30/2021 completed Not Available [facility] 03/24/2023 06:09:02 COVID-19 vaccine, vector-nr, [id number], PF, 0.5 mL 10/05/2020 completed Not Available [facility] 03/24/2023 06:09:02 COVID-19, mRNA, LNP-S, bivalent, PF, 30 mcg/0.3 mL dose 03/18/2022 completed Not Available [facility] 03/24/2023 06:09:02 Past Encounters Encounter ID Performer Location Encounter Start Date Encounter Closed Date Diagnosis/Indication Diagnosis SNOMED-CT Code [id number] SHITAL JOSHUA MD [address] [address] 10/30/2023 14:27:32 10/30/2023 15:53:17 Chronic pain [id number] Medication monitoring 39 [id number] Health Concerns Section Related Observation LastModified by Organization Detai ls LastModified Time None Recorded Concern Status LastModified by Organization Details LastModified Time None Recorded Payers Encounter Date Sequence Insurance Name Policy Number Policy Beck Covered Member ID Beck Member ID Guarantor Name 10/30/2023 1 [place] [employer] Michael Esqueda [id number] Michael Esqueda Notes Date Note Type Note Provider Name and Address Organization Details Recorded Time 10/30/2023 text/html HPI Notes: Here for f/u chronic pain. Having more aches and pains gradually over time, in particular lately his shoulders have been bothering him more, this is chronic and he relates it somewhat to his position in the wheelchair where his arms rest higher than they otherwise would. He does shoulder exercises off [employer], helping. He is using heat and lidocaine gel Massage is helping him, gets this weekly. Methadone still helpful but feels he has built a tolerance to it over time and wondering about increasing the dose. Taking more advil, 1 tablet here and there because of the shoulder pain. Can't tell how much it helps. He no longer uses a cane, he uses a power chair to get around which is going fine. Able to transfer to the bed and toilet without problems. He does a leg press and uses this to keep up his leg strength somewhat. He is able to do some gardening in the power chair, enjoys this. no dyspnea, chest pain, palpitations, dizziness. His chronic pedal edema is mild, not as bad as in the past. appetite is fine, eating well. No cough. No GERD no constipation. No urinary problems, no retention, no incontinence. He has chronic urinary frequency hourly He doesn't sleep well, gets up frequently to urinate, his shoulder sometimes wakes him up. He takes a marshmallow tincture that seems to help with frequent urination. No hearing or memory concerns. Stays busy, does not feel isolated, has friends and family members around. SHITAL JOSHUA MD [address], [place], [address], [facility]. 10/30/2023 16:27:49
--- OUTSIDE RECORDS SUMMARY | 2023-12-01 17:00 | XMS_ITS | Encounter Summary ---
Author Organization [facility] [place] [address] Care Team Providers Care Vp Project Name Role Phone Shazia Philip MD Primary Care Provider [phone] Encounter Details Date Type Department Care Team (Late st Contact Info) Description 03/20/2019 1:01 PM EST - 03/20/2019 2:12 PM EST Hospital [place] [phone] Timbo Patel DO [address] [facility] [place] [address] Lumbar spondylosis (Primary Dx) Discharge Disposition: Home Social History Tobacco Use [...] * Discharge Instructions* Belia Ramon RN - 03/20/2019 2:01 PM EST Pain Management [...] 1955 Admit date: 03/20/2019 Attending Physician: Ijeoma att. providers found PREPROCEDURE HISTORY AND PHYSICAL Date [...] Timbo Patel, DO, 10 mL at 03/20/19 1353 Current Outpatient Medications: ??? methadone (DOLOPHINE) 10 [...] file Gets together: Not on file Attends mormonism service: Not on file Active member of [...] Timbo Patel D.O., MBA Attending Physician - [facility] documented in this encounter Miscellaneous Notes * Op Note - Timbo Patel DO - 03/20/2019 5:14 AM EST Pain Management Operative Note Patient Name: Michael Esqueda : [id number] MR#: [id number] Case Date: 03/20/2019 Surgeon: Surgeon(s) and Role: [...] Pain and Spine CC: Jazzmine Roach MD [facility] [[email or web address] [address] [place] [address] documented in this encounter Plan of Treatment Not on file documented as of this encounter Visit Diagnoses Diagnosis Lumbar spondylosis- Primary Lumbosacral spondylosis without myelopathy documented in [...] DO) documented in this encounter Care Teams Vp Project Relationship Specialty Start Date End Date Shazia Philip MD [address] [place] [id number] PCP - General General Internal Medicine 01/24/19 documented as of this encounter
--- OUTSIDE RECORDS SUMMARY | 2023-12-01 17:00 | XMS_ITS | Encounter Summary ---
Author Organization [facility] [place] [address] Care Team Providers Care Iap Displays Analyst Name Role Phone Shazia Philip MD Primary Care Provider [phone] Encounter Details Date Type Department Care Team (Late st Contact Info) Description 02/19/2019 2:00 PM EDT Ancillary Procedure Pain Management [facility] [place] [address] Kaitlynn Tony [place] [facility] [address] Pain Social History Tobacco Use Types Packs/Day [...] STORAGE ONLY PAIN CLINIC C ARM Routine 02/19/2019 4:11 PM EDT Pain documented in this encounter Results * Film Library- Storage Only pain Clinic C-Arm (02/19/2019 4:11 PM EDT) Narrative BRITTANY - 02/19/2019 4:11 PM EDT See PACS for result report. Kaitlynn Tony MD IMG FILM LIBRARY ORDERABLES [place], [place] documented in this encounter Visit Diagnoses Diagnosis Pain Generalized pain documented in this encounter Care Teams Iap Displays Analyst Relationship Specialty Start Date End Date Shazia Philip MD [address] [place] [address] PCP - General General Internal Medicine 01/24/19 documented as of this encounter
--- OUTSIDE RECORDS SUMMARY | 2023-12-01 17:00 | XMS_ITS | Encounter Summary ---
Author Organization [facility] [place] [address] Care Team Providers Care Roads And Parking Lots Sweeper Operator Name Role Phone Unavailable Primary Care Provider Unavailabl e Encounter Details Date Type Department Care Team (Late st Contact Info) Description 11/07/2018 Ancillary Procedure Radiology Library at [facility] [place] [address] Tami Jones APRN [facility] [address] Social History Tobacco Use Types Packs/Day Years [...] Associated Diagnosis Comments FILM LIBRARY STORAGE ONLY MR SPINE Routine 11/07/2018 12:00 AM EDT documented in this encounter Results * Film Library- Storage Only MR Spine (11/07/2018 12:00 AM EDT) Narrative BRITTANY - 01/22/2019 7:49 PM EDT This exam is auto-finalizing. It's purpose is for storage only. Tami BEE FILM LIBRARY ORD ERABLES [place], [place] documented in this encounter Visit Diagnoses Not on filedocumented in this encounter
--- OUTSIDE RECORDS SUMMARY | 2023-12-01 17:00 | XMS_ITS | Referral Summary ---
Author Organization [facility] Address [address] [place] [address] Care Team Providers Care Staff Development Coordinator Rn Name Role Phone Jaleel Delacruz MD Primary Care Provider Unav ailable Medications Medication Sig Dispensed Refills Start Date End Date Status methadone (DOLOPHINE) 5 mg tablet Take 5 mg by mouth every 8 hours. Active Social History Tobacco Use Types Packs/Day Years Used Date Smoking Tobacco: Never Assessed Sex and Gender Information Value Date Recorded Sex Assigned at Not on file Gender Identity Not on file Sexual Orientation Not on file Plan of Treatment Not on file Care Teams Staff Development Coordinator Rn Relationship Specialty Start Date End Date Jaleel Delacruz MD PCP - General 12/08/08
--- OUTSIDE RECORDS SUMMARY | 2023-12-01 17:00 | XMS_ITS | Encounter Summary ---
Author Organization [facility] [place] [address] Care Team Providers Care Transition Nurse Name Role Phone Shazia Philip MD Primary Care Provider [phone] Encounter Details Date Type Department Care Team (Latest Contact Info) Description 02/11/2019 1:40 PM EDT - 02/11/2019 3:06 PM EDT Hospital En[place] [phone] Don Marquez MD [facility] [place] [address] Chronic bilateral low back pain without sciatica; Lumbar facet arthropathy Discharge Disposition: Home Social History Tobacco Use Types Packs/Day Years Used Date Smoking Tobacco: Never Smokeless Tobacco: Never Sex and Gender Information Value Date Recorded Sex Assigned at Not on file Gender Identity Not on file Sexual Orientation Not on file documented as of this encounter Last Filed Vital Signs Vital Sign Reading Time Taken Comments Blood Pressure 126/95 02/11/2019 2:55 PM EDT Pulse - - Temperature - - Respiratory Rate - - Oxygen Saturation 100% 02/11/2019 2:55 PM EDT Inhaled Oxygen Concentration - - Weight 72.6 kg (160 lb) 02/11/2019 2:50 PM EDT Height 170.2 cm (5' 7) 02/11/2019 2:50 PM EDT Body Mass Index 25.06 02/11/2019 2:50 PM EDT documented in this encounter Discharge Instructions * Discharge Instructions* Belia Ramon RN - 02/11/2019 3:01 PM EDT Pain Management Center Discharge Instructions: You were seen today by Surgeon(s): Don Marquez MD The following was performed: Procedure(s) (LRB): INJECTION, FACET JOINT, W\FLUORO, LUMBAR, SINGLE (WRVU 1.52) (Bilateral) It is normal that the injection [...] During Procedure Date/Time Order Dose Route Action 02/11/2019 1454 BUpivacaine (PF) (MARCAINE) 0.5 % (5 mg/mL) injection 3 mL Other Given During regular business hours, please phone [...] emergency department. Belia Ramon RN Special instructions Pain Management Center Post -Procedure Pain Log Patient: Michael Esqueda [id number] It is important for you to keep track of your pain after your procedure that took place 01/24/2019. This information will help your Provider to determine how to help reduce your pain. Today you had a procedure for pain in your Back. Your pain level before the procedure in this area was 10 /10. Your pain level immediately after your procedure was /10. Time Pain Score Comments 1 hour 4.00pm 2 hours 5.00pm 3 hours 6.00pm 4 hours 7.00pm Please call the nurse in the Pain [...] as of this encounter H&P Notes * Don Marquez MD - 02/11/2019 2:58 PM EDT Patient Name: Michael Esqueda Patient Age: 63 y.o. Birthdate: 1955 Admit date: 02/11/2019 Attending Physician: Don Marquez MD PREPROCEDURE HISTORY AND PHYSICAL Date of Visit: February 11, 2019 Chief Complaint: Back pain. History of spinal cord injury, incomplete quadriplegia. HPI: Subjective Michael Esqueda is a 63 y.o. male who presents today for diagnostic lumbar medial branch nerve block referred by Tami Jones APRN. The history is obtained from the patient, and I have reviewed medical records provided by the referring physician and located in the electronic medical record to fill in gaps in the patient's recollection of events, treatments and outcomes. LOCATION: back pain. PAIN LEVEL AT REST 10/10 PAST MEDICAL HISTORY: No past medical history [...] file Gets together: Not on file Attends muslim service: Not on file Active member of [...] History Narrative ??? Not on file ROS: Denies fever, chills, SOB, abdominal pain, leg weakness/numbnes, arm weakness/numbness, bowel or bladder incontinence, balance issues PHYSICAL EXAM: BP (!) 126/95 Ht 170.2 cm (5' 7) Wt 72.6 kg (160 lb) SpO2 100% BMI 25.06 kg/m?? Physical Exam Constitutional: He is oriented to person, place, and time. He appears well- developed and well-nourished. Neurological: He is alert and oriented to person, place, and time. Skin: Skin is warm and dry. No erythema. Vitals reviewed. RADIOLOGIC DATA: ASSESSMENT: Assessment Lumbar spondylosis bilateral low back pain PLAN: - proceed with diagnostic lumbar medial branch nerve block at L2, L3, L4 to target the L3/4 and L4/5 facet joints. Don Marquez MD documented in this encounter Miscellaneous Notes * Op Note - Don Marquez MD - 02/11/2019 3:06 PM EDT Pain Management Operative Note Patient Name: Michael Esqueda : [id number] MR#: [id number] Case Date: 02/11/2019 Surgeon: Surgeon(s) and Role: * Don Marquez MD - Primary Pre-operative diagnosis: Lumbar spondylosis Spinal cord injury bilateral low back pain Procedure(s) (LRB): INJECTION, FACET JOINT, W\FLUORO, LUMBAR, SINGLE (WRVU 1.52) (Bilateral) INJECTION, FACET JOINT, W\FLUORO, LUMBAR, 2ND LEVEL (WRVU 1) (Bilateral) PROCEDURE NOTE LUMBAR MEDIAL BRANCH DIAGNOSTIC BLOCKS Date of Service: 01/24/2019 Patient: Michael Esqueda Referring Physician: Jazzmine Live Md [address] [address] Diagnosis: 1. Chronic bilateral low back pain without sciatica 2. Lumbar facet arthropathy Pre-procedure Note History and Exam: Patient demonstrates today moderate to severe non- radicular back pain without neurologic deficit aggravated by hyperextension Yes Back pain greater than leg pain Yes Patient today has tenderness over the suspected joint(s) Yes History of post-traumatic injury Yes Hypertrophic arthropathy Yes Back pain associated with suspected motion segment instability or Hypermobility or pseudoarthrosis No Pre-testing pain score (VAS): 10 Previous medial branch block testing?: No Today's Operative Note Michael Esqueda was greeted by the nurse who verified the patients name and . Patient was thentaken to the fluoroscopy suite. Mr. Esqueda was interviewed and the medical record was reviewed. There were no medical contraindications to performing the bilateral lumbar medial branch nerve blocks. I first had a talk with the [...] was signed. Standard time-out procedure was performed Mr. Esqueda was placed in the prone [...] confirmed in A/P, oblique and lateral views. At each level we injected 0.5ml of Bupivacaine 0.5%. Mr. Beckman vital signs were stable throughout the procedure and were as recorded in the docflowsheet by the nursing staff. Postoperatively, today patient demonstrates the following changes with hyperextension and with tenderness over the suspected joint(s). Provacative testing using the Stockton's facet loading test Right side Left side Directly before the block VAS (0-10) = 10 VAS (0-10) = 10 5 minutes after the block VAS (0-10) = 5 VAS (0-10) = 5 Percentage relief obtained with this diagnostic block 50% 50% Any improved physical functioning directly after the blocks? Patient pivoted from stretcher to standing with 1 assist and reported that his back pain has improved to 50% compared to before procedure Next, he was asked to recordhis percent pain relief and any changes in provocative maneuvers for the next 4 hours. He will report this information at the next business day to one of our nurses. Based on the medial branches blocked today, if the patient meets insurance criteria for radiofrequency, the treatment should result in the denervation of the bilaterally L3-L4 and L4-L5 facet joint nerves. We would expect to denervate a total of 4 facets during the radiofrequency ablation. Discharge plan:: He will call back with his 0-4 hour post-procedure pain scores. Comment: given patient's prior spinal cord injury, patient needed 2 people assist to transfer from wheelchair, please schedule for future procedures extra time for patient positioning. I personally performed the entire procedure. Don Marquez MD Attending Physician - Pain Management CC: Jazzmine Live MD [facility] [address] [place] [address] documented in this encounter Plan of Treatment Scheduled Orders Name Type Priority Associated Diagnoses Orde r Schedule INJECTION, FACET JOINT,W\FLUORO, LUMBAR, 2ND LEVEL Procedures Routine Chronic bilateral low back pain without sciatica Lumbar facet arthropathy One Time for 1 Occurrences starting 02/11/2019 until 02/11/2019 documented as of this encounter Visit Diagnoses Diagnosis Chronic bilateral low back pain without sciatica Lumbar facet arthropathy Lumbosacral spondylosis without myelopathy documented in this encounter Active and Recently Administered Medications Times are shown in EDT. PRN Medication Order 02/09/2019 02/10/2019 02/11/2019 BUpivacaine (PF) (MARCAINE) 0.5 % (5 mg/mL) injection (CANCELED) ONCE PRN, Starting on Mon02/11/19 at 1457, Until Mon02/11/19 at 1707, Intra-Operative (Intra-Procedure), Routine 1457 (Given - Provid er: Don Marquez MD - Comment: Bilateral LMBB) documented in this encounter Care Teams Transition Nurse Relationship Specialty Start Date End Date Shazia Philip MD [address] [place] [address] PCP - General General Internal Medicine 01/24/19 documented as of this encounter
--- OUTSIDE RECORDS SUMMARY | 2023-12-01 17:00 | XMS_ITS | Encounter Summary ---
Author Organization [facility] [place] [address] Care Team Providers Care General Engineer Name Role Phone Shazia Philip MD Primary Care Provider [phone] Encounter Details Date Type Department Care Team (Late st Contact Info) Description 02/13/2019 Telephone [facility] at [facility] [place] [phone] Gail Spears, RN Social History Tobacco Use Types Packs/Day Years Used Date Smoking Tobacco: Never Smokeless Tobacco: Never Sex and Gender Information Value Date Recorded Sex Assigned at Not on file Gender Identity Not on file Sexual Orientation Not on file documented as of this encounter Miscellaneous Notes * Telephone Encounter - Gail Spears RN - 02/13/2019 3:37 PM EDT Return call to patient as he had called in as he had a procedure on Monday02/11/19 patient states I am doing great no pain. No answer when nurse called back so a message was left for patient to call back as nursing needs to document pain scores Procedure was a Bilateral LMBB done on 02/11/19. With Dr. Marquez Awaiting call back at this time. documented in this encounter Plan of Treatment Not on file documented as of this encounter Visit Diagnoses Not on filedocumented in this encounter Care Teams General Engineer Relationship Specialty Start Date End Date Shazia Philip MD [address] [place] [id number] PCP - General General Internal Medicine 01/24/19 documented as of this encounter
--- OUTSIDE RECORDS SUMMARY | 2023-12-01 17:00 | XMS_ITS | Encounter Summary ---
Author Organization [facility] [place] [address] Care Team Providers Care International Sales Representative Name Role Phone Shazia Philip MD Primary Care Provider + [phone] Encounter Details Date Type Department Care Team (Late st Contact Info) Description 01/24/2019 Telephone [facility] [place] [phone] Brittney Cadena RN Social History Tobacco Use Types Packs/Day Years Used Date Smoking Tobacco: Never Smokeless Tobacco: Never Sex and Gender Information Value Date Recorded Sex Assigned at Not on file Gender Identity Not on file Sexual Orientation Not on file documented as of this encounter Miscellaneous Notes * Telephone Encounter - Brittney Cadena RN - 01/24/2019 1:31 PM EDT Opened in error. documented in this encounter Plan of Treatment Not on file documented as of this encounter Visit Diagnoses Not on filedocumented in this encounter Care Teams International Sales Representative Relationship Specialty Start Date End Date Shazia Philip MD [address] [place] [address] PCP - General General Internal Medicine 01/24/19 documented as of this encounter
--- OUTSIDE RECORDS SUMMARY | 2023-12-01 17:00 | XMS_ITS | Encounter Summary ---
Author Organization [facility] Address [facility] [place] [address] Care Team Providers Care Electrifier Operator Name Role Phone Shazia Philip MD Primary Care Provider + [phone] Encounter Details Date Type Department Care Team (Late st Contact Info) Description 02/11/2019 2:00 PM EDT - 02/11/2019 2:30 PM EDT Surgery [place] [phone] Don Marquez MD [facility] [place] [address] INJECTION, FACET JOINT, W\FLUORO, LUMBAR, SINGLE (WRVU 1.52) Social History Tobacco Use Types Packs/Day Years Used Date Smoking Tobacco: Never Smokeless Tobacco: Never Sex and Gender Information Value Date Recorded Sex Assigned at Not on file Gender Identity Not on file Sexual Orientation Not on file documented as of this encounter Discharge Instructions * Discharge Instructions* Belia Ramon, HERB - 02/11/2019 3:01 PM EDT Pain Management [...] Procedure Date/Time Order Dose Route Action 02/11/2019 1459 BUpivacaine (PF) (MARCAINE) 0.5 % (5 mg/mL) [...] Post -Procedure Pain Log Patient: Michael Esqueda [id number] It is important for you to keep [...] file Gets together: Not on file Attends moravian service: Not on file Active member of [...] Pain Management Operative Note Patient Name: Michael Eqsueda : [id number] MR#: [id number] Case Date: 02/11/2019 Surgeon: Surgeon(s) and Role: [...] Michael Esqueda Referring Physician: Jazzmine Live Md [facility] [address] [place] [address] Diagnosis: 1. Chronic bilateral low back pain [...] we injected 0.5ml of Bupivacaine 0.5%. Mr. Esqueda's vital signs were stable throughout [...] - Pain Management CC: Jazzmine Live MD [address] [address] documented in this encounter Plan of Treatment [...] (5 mg/mL) injection ONCE PRN, Starting on Mon02/11/19 at 1457, Until Mon02/11/19 at 1707, Intra-Operative (Intra-Procedure), Routine Given 02/11/2019 2:57 PM EDT 3 mLs documented in this [...] LMBB) documented in this encounter Care Teams Electrifier Operator Relationship Specialty Start Date End Date Shazia Philip MD [address] [place] [address] PCP - General General Internal Medicine 01/24/19 documented as of this encounter
--- OUTSIDE RECORDS SUMMARY | 2023-12-01 17:00 | XMS_ITS | Encounter Summary ---
Author Organization [facility] Address [address] [place] [address] Care Team Providers Care Commercial Lines Sales Executive Name Role Phone Jaleel Delacruz MD Primary Care Provider Unav ailable Encounter Details Date Type Department Care Team (Latest Contact Info) Description 03/17/2009 13:22 EST - 03/17/2009 23:59 EST Hospital Encounter [address] [address] Jaleel Delacruz MD Discharge Disposition: Home or Self Care Social History Tobacco Use Types Packs/Day Years Used Date Smoking Tobacco: Never Assessed Sex and Gender Information Value Date Recorded Sex Assigned at Not on file Gender Identity Not on file Sexual Orientation Not on file documented as of this encounter Discharge Disposition Disposition Code Departure Means Destination Home or Self Skilled Nursing documented in this encounter Plan of Treatment Not on file documented as of this encounter Visit Diagnoses Not on filedocumented in this encounter Care Teams Commercial Lines Sales Executive Relationship Specialty Start Date End Date Jaleel Delacruz MD PCP - General 12/08/08 documented as of this encounter
--- OUTSIDE RECORDS SUMMARY | 2023-12-01 17:00 | XMS_ITS | Encounter Summary ---
Author Organization [facility] [place] [address] Care Team Providers Care Funeral Director/Embalmer Name Role Phone Shazia Philip MD Primary Care Provider [phone] Encounter Details Date Type Department Care Team (Late st Contact Info) Description 02/15/2019 Telephone [place] [phone] Teodora Monahan RN Social History Tobacco Use Types Packs/Day Years Used Date Smoking Tobacco: Never Smokeless Tobacco: Never Sex and Gender Information Value Date Recorded Sex Assigned at Not on file Gender Identity Not on file Sexual Orientation Not on file documented as of this encounter Miscellaneous Notes * Telephone Encounter - Teodora Monahan RN - 02/15/2019 3:38 PM EDT Pain Management Center Post-Procedure Phone Note Patient: Michael Esqueda [id number] Post-procedure phone call from patient to report his response to the lumbar medial branch block procedure performed on 02/11/19 in the Pain Management Center by Don Marquez MD. This is patient's : first medial branch block. Patient reports that after the procedure he experienced: X__ Patient reported post-block numeric pain scale: 2 /10 (average pain since procedure) X__ Post-procedure pain has been reduced by 85%. (> 80% Medicare/MVP/Medicaid) _X_ If relief > 80% with ability to perform painful maneuvers; schedule 2nd MBB: yes __ Post-procedure pain has been reduced by 85%. (> 50% all other insurers) __ Pain relief: moderate If pain is reduced, it lasted: No less than 4 hours Yes 4 hours or greater Yes 24 hours or greater Based on the information provided above and after discussion with the patient, the following actions will be taken: _X_ Patient meets criteria to proceed to second Bilateral at L2, L3 and L4 lumbar medial branch block. . _X_ Patient will be contacted by placement secretary in Pain Management Center as described above. __ Patient was given general information about the procedure and all their questions were answered to their satisfaction. Patient on anticoagulant medication: No Order obtained to temporarily stop anticoagulants prior to procedure per Pain Management Center guidelines: No Patient has pacemaker/defibrillator: No Patient has the appropriate phone number and understands that he may contact the Pain Management Center at any time with questions or concerns. Teodora Monahan RN documented in this encounter Plan of Treatment Not on file documented as of this encounter Visit Diagnoses Not on filedocumented in this encounter Care Teams Funeral Director/Embalmer Relationship Specialty Start Date End Date Shazia Philip MD [address] [address] PCP - General General Internal Medicine 01/24/19 documented as of this encounter
--- OUTSIDE RECORDS SUMMARY | 2023-12-01 17:00 | XMS_ITS | Encounter Summary ---
Author Organization [facility] [place] [address] Care Team Providers Care Retail Selling Floor Leader Name Role Phone Shazia Philip MD Primary Care Provider [phone] Encounter Details Date Type Department Care Team (Late st Contact Info) Description 03/20/2019 1:00 PM EST Ancillary [place] [id number] Timbo Patel DO [address] [facility] [place] [address] Pain Social History Tobacco Use Types Packs/Day [...] STORAGE ONLY PAIN CLINIC C ARM Routine 03/20/2019 4:43 PM EST Pain documented in this encounter Results * Film Library- Storage Only pain Clinic C-Arm (03/20/2019 4:43 PM EST) Narrative [facility] - 03/20/2019 4:43 PM EST See PACS for result report. Timbo MARTINEZ FILM LIBRARY ORD ERABLES [place], [place] documented in this encounter Visit Diagnoses Diagnosis Pain Generalized pain documented in this encounter Care Teams Retail Selling Floor Leader Relationship Specialty Start Date End Date Shazia Philip MD [address] [place] [address] PCP - General General Internal Medicine 01/24/19 documented as of this encounter
--- OUTSIDE RECORDS SUMMARY | 2023-12-01 17:00 | XMS_ITS | Encounter Summary ---
[facility] Organization [facility] [place] [address] Care Team Providers Care Ceo & Founder Name Role Phone Shazia Philip MD Primary Care Provider [phone] Encounter Details Date Type Department Care Team (Late st Contact Info) Description 02/21/2019 Telephone [facility] [place] [phone] Teodora Monahan RN Social History Tobacco Use Types Packs/Day Years Used Date Smoking Tobacco: Never Smokeless Tobacco: Never Sex and Gender Information Value Date Recorded Sex Assigned at Not on file Gender Identity Not on file Sexual Orientation Not on file documented as of this encounter Miscellaneous Notes * Telephone Encounter - Teodora Monahan RN - 02/21/2019 4:46 PM EDT [facility] Post-Procedure Phone Note Patient: Michael Weinstein Esqueda [id number] Post-procedure phone call from patient to report his response to the lumbar medial branch block procedure performed on 02/19/19 in the [facility] by Kaitlynn Tony MD. This is patient's : second medial branch block. Patient reports that after the procedure he experienced: _X_ Patient reported post-block numeric pain scale: 3 /10 (average pain since procedure) X__ Post-procedure pain has been reduced by 80%. (> 80% Medicare/MVP/Medicaid) _X_ Post-procedure pain has been reduced by 80%. (> 50% all other insurers) X__ Pain relief: moderate If pain is reduced, it lasted: No less than 4 hours Yes 4 hours or greater No 24 hours or greater Pt states that after the second lumbar medial branch block he felt relief for both 02/20/19 and 02/21/19 and has been able to stand up easier, take a shower and stand for longer periods of time. Based on the information provided above and after discussion with the patient, the following actions will be taken: _X_ Patient meets criteria for radiofrequency treatment and would like to proceed with a bilateral lumbar spine at L3, L4 and L5-DR Radiofrequency procedure with Janes Huertas MD. _X_ Patient will be contacted by departmental secretary in [facility] as described above. __ Patient was given general information about the procedure and all their questions were answered to thXeir satisfaction. Patient on anticoagulant medication: No Order [...] on filedocumented in this encounter Care Teams Ceo & Founder Relationship Specialty Start Date End Date Shazia Philip MD [address] [place] [id number] PCP - General General Internal Medicine 01/24/19 documented as of this encounter
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
--- OUTSIDE RECORDS SUMMARY | 2023-12-01 17:00 | XMS_ITS | Encounter Summary ---
Author Organization [facility] Address [address] [place] [address] Care Team Providers Care Shank Boner Name Role Phone Jaleel Delacruz MD Primary Care Provider Unav ailable Reason for Visit * Reason Comments Gait Problem Encounter Details Date Type Department Care Team (Late st Contact Info) Description 02/21/2012 Documentation Visit [facility] - [address] [id number] Mia Jon, PT [address] [place] [id number] Social History Tobacco Use Types Packs/Day Years Used Date Smoking Tobacco: Never Assessed Sex and Gender Information Value Date Recorded Sex Assigned at Not on file Gender Identity Not on file Sexual Orientation Not on file documented as of this encounter Progress Notes * Mia Jon, PT - 02/21/2012 0[facility] [address] [place] [address] Physical Therapy Discontinue/Discharge Note Date of Service: 02/21/2012 Reason for Referral: Diagnosis: 1) Gait Impairment 2) Incomplete Quadriplegia ICD 9: 1) 781.2 2) 344.04 Date of Onset: 12/22/11 (sought care) Referring Provider: Jaleel Delacruz MD Precautions: Routine Total Number of Sessions: 1 S: Spoke with patient on the phone. He reports that he has used the Walk Aides some and that they seem to be working well. He states that he is not consistently wearing them as things have been busy. Pain: No pain reported. O: The patient has been seen in physical therapy since 01/02/2012 for Checkout for Orthotic/Prosthetic Use. In this reporting period 01/02/2012 to 02/21/2012, the patient has been seen by a physical therapist for one session only. Relevant objective findings: None, as the patient was seen for initial evaluation only. See note dated 01/02/2012 for further details. A: Mann initiated physical therapy with report of non- functional Walk Aide devices. During ambulation, the patient was getting only occasional firing of his left Walk Aide which was leading to decreased left foot clearance and lack of heel strike. His right Walk Aide was functioning appropriately.His left Walk Aide was adjusted during this therapy session and he was demonstrating a more normal gait pattern at the end of his session. He reported via telephone today that the devices are workingwell, therefore do not feel that further skilled physical therapy intervention is indicated as he has met all goals set. Assisted Goals: 4 weeks The patient to get consistent stimulation from Walk Aide device during swing phase of gait to improve his gait mechanics. (MET) The patient to tolerate standing without excessive stimulation. (MET) P: Discontinue Physical Therapy. MIA JON, KRISTI 02/21/2012 8:58 documented in this encounter Plan of Treatment Not on file documented as of this encounter Visit Diagnoses Not on filedocumented in this encounter Care Teams Shank Boner Relationship Specialty Start Date End Date Jaleel Delacruz MD PCP - General 12/08/08 documented as of this encounter
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
[2023-12-01 21:13] LABS: HCT 39.5 % (40.0-50.0); MCH 33.8 pg (27.0-33.0); MCHC 35.4 % (32.0-36.0); MCV 95 fL (80-95); MPV 10.1 fL (8.0-11.0); Platelet Count 270 10^3/uL (130-400); RBC 4.14 10^6/uL (4.36-5.78); RDW 11.6 % (11.8-14.1); WBC 5.73 10^3/uL (4.4-10.8)
[2023-12-01 21:33] LABS: TSH (W/Ref FT4) 0.99 uIU/mL (0.36-3.74)
[2023-12-01 21:35] LABS: C-Reactive Protein < 0.50 mg/dL (<or=0.5)
[2023-12-04 20:19] LABS: Ferritin 72 ng/mL (26-388)
== END 2023-12-01 16:45 | disposition home or self-care (01) ==
LOC: NCHCN 16:44
PROVIDERS: Internal Medicine; PCP Internal Medicine; Visit Provider Registered Nurse
DX: D64.9 Anemia, unspecified (principal); R53.83 Other fatigue
CPT/HCPCS: 85027; 82607; 82728; 84443; 86140

== ENCOUNTER 2024-10-10 16:25 | Outpatient (REF) | payer MEDICARE, SELFPAY ==
[2024-10-10 21:22] LABS: HGB 14.2 g/dL (13.5-17.5); MCH 33.3 pg (27.0-33.0); MCHC 34.6 % (32.0-36.0); MCV 96 fL (80-95); Platelet Count 266 10^3/uL (130-400); RBC 4.26 10^6/uL (4.36-5.78); RDW 11.8 % (11.8-14.1); RDW-SD 41.1 fL; WBC 5.22 10^3/uL (4.4-10.8)
[2024-10-10 21:40] LABS: Anion Gap 6.2 mmol/L (3-11); BUN 11 mg/dL (7-18); CO2 27.8 mmol/L (21.0-32.0); CREATININE 0.7 mg/dL (0.70-1.30); Calcium 8.9 mg/dL (8.5-10.1); Calculated LDL 78 mg/dL (<100); Chloride 101 mmol/L (98-107); Cholesterol 164 mg/dL (<200); Estimated GFR 100.99 (mL/min/1.73m2); Glucose 104 mg/dL (74-106); HDL Cholesterol 80 mg/dL (>or=40); Potassium 4.3 mmol/L (3.5-5.1); Sodium 135 mmol/L (136-145); Triglyceride 33 mg/dL (<150)
== END 2024-10-10 16:26 | disposition home or self-care (01) ==
LOC: NCHCN 16:25
PROVIDERS: PCP Internal Medicine; Visit Provider Internal Medicine
DX: Z13.6 Encounter for screening for cardiovascular disorders (principal); E87.1 Hypo-osmolality and hyponatremia; Z51.81 Encounter for therapeutic drug level monitoring
CPT/HCPCS: 80048; 80061; 85027